=== PATIENT | male | born 1980 | race Caucasian/White ===

== ENCOUNTER 2016-08-06 22:10 | Emergency (ER) | payer OTHER ==
[2016-08-06 22:31] VITALS: RESP 18
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
[2016-08-07] MEDS ORDERED: KETOROLAC 60 MG/2 ML VIAL IM STA (00:29)
[2016-08-07 01:02] VITALS: BP 135/78; PULSE 78; TEMP 97.9
== END 2016-08-07 01:02 | disposition home or self-care (01) ==
LOC: EC 22:10
DX: S80.02XA Contusion of left knee, initial encounter (principal); S50.312A Abrasion of left elbow, initial encounter; F17.200 Nicotine dependence, unspecified, uncomplicated; Z88.5 Allergy status to narcotic agent; V19.9XXA Pedal cyclist (driver) (passenger) injured in unspecified traffic accident, initial encounter; Y92.410 Unspecified street and highway as the place of occurrence of the external cause
CPT/HCPCS: 96372 ×2; 99283 ×2; 73080; 73562; J1885

== ENCOUNTER 2017-03-06 22:39 | Emergency (ER) | payer OTHER ==
[2017-03-06 22:48] VITALS: BP 121/81; PULSE 82; RESP 16; TEMP 98.9
[2017-03-06] MEDS ORDERED: PROPARACAINE 0.5% OPHTH DROPS 15 ML BTL LEFT EYE STA (23:36)
[2017-03-06] MEDS ORDERED: TOBRAMYCIN 0.3% OPHTH OINT 3.5 GM TUBE LEFT EYE STA (23:50)
[2017-03-06] MEDS ORDERED: DIPH,PERTUS(ACELL)TETVAC-LF 0.5 ML VIAL IM ONE (23:50)
--- NOTE | 2017-03-06 23:50 | ED ---
ENT HPI - General Chief complaint: Eye Problems Stated complaint: eye pain Time Seen by Provider: 03/06/17 23:35 Source: patient Mode of arrival: ambulatory Limitations: no limitations - History of Present Illness Initial comments: 36-year-old male patient presents to the emergency department today for evaluation of left eye pain and irritation. Patient states that symptoms started approximately 2 days ago. He states that he thinks he may have gotten something in it at work. He describes the pain as a scratching feeling. States that the eye is also very itchy. He is reporting clear drainage from the eye. He states that his vision is somewhat blurred but he can still see. He denies any headaches, fever, chills, cough, congestion, or nasal drainage. He denies any sick contacts. Patient denies any recent rash, shortness breath, chest pain, abdominal pain, nausea, vomiting, diarrhea, constipation, back pain , numbness, tingling, dizziness, weakness, hematuria, dysuria, urinary urgency, urinary frequency, headache, visual changes, or any other complaints. - Related Data Home Medications Medication Instructions Recorded Confirmed No Known Home Medications [No 03/06/17 03/06/17 Known Home Medications] Allergies Allergy/AdvReac Type Severity Reaction Status Date / Time tramadol Allergy Nausea & Verified 03/06/17 23:26 Vomiting Review of Systems ROS Statement: Those systems with pertinent positive or pertinent negative responses have been documented in the HPI. ROS Other: All systems not noted in ROS Statement are negative. Past Medical History Additional Past Medical History / Comment(s): pneumothorax, TRACH AT 1 YEAR OLD History of Any Multi-Drug Resistant Organisms: None Reported Past Surgical History: Orthopedic Surgery Additional Past Surgical History / Comment(s): nasal surgery Past Psychological History: No Psychological Hx Reported, Anxiety, Bipolar, Depression, Schizophrenia Smoking Status: Current every day smoker Past Alcohol Use History: None Reported Past Drug Use History: None Reported General Exam Limitations: no limitations General appearance: alert, in no apparent distress, other (This is a well- developed, well-nourished adult male patient in no acute distress. Vital signs upon presentation were temperature 98.9F, pulse 82, respirations 16, blood pressure 121/81, pulse ox 99% on room air.) Eye exam: Present: PERRL, EOMI, conjunctival injection (Left conjunctival injection), other (Clear drainage from the left eye. Centeno lamp examination with fluorescein stain was performed and did show conjunctival abrasions at both 3:00 and 9:00. There was no evidence of foreign body, no abnormalities with lid eversion.). Absent: scleral icterus, nystagmus, periorbital swelling ENT exam: Present: normal exam, normal oropharynx, mucous membranes moist Respiratory exam: Present: normal lung sounds bilaterally. Absent: respiratory distress, wheezes, rales, rhonchi, stridor Cardiovascular Exam: Present: regular rate, normal rhythm, normal heart sounds. Absent: systolic murmur, diastolic murmur, rubs, gallop, clicks Neurological exam: Present: alert, oriented X3, CN II-XII intact Psychiatric exam: Present: normal affect, normal mood Skin exam: Present: warm, dry, intact, normal color. Absent: rash Course Vital Signs 03/06/17 22:45 Temperature 98.9 F Pulse Rate 82 Respiratory 16 Rate Blood Pressure 121/81 O2 Sat by Pulse 99 Oximetry Medical Decision Making - Medical Decision Making 36-year-old male patient presented to the emergency department today for evaluation of left eye pain and irritation. Physical examination did reveal left conjunctival injection. Pupils were equal and reactive. I did perform lid eversion with no evidence of foreign body or abnormality. I performed a Centeno lamp examination with fluoroscein stain which did reveal 2 large conjunctival abrasions at both 3:00 and 9:00. Patient did have complete pain relief with instillation of proparacaine. Tetanus vaccine was updated today. Patient will be discharged home with tobramycin ointment, he is instructed to apply this to the lower eyelid 4 times daily. He is instructed to take ibuprofen for pain relief. He is instructed to follow-up with ophthalmology if his symptoms don't improve over the next 2 days. He is instructed to return here immediately for any new, worsening, or concerning symptoms. He verbalizes understanding and agrees with this plan. Disposition Clinical Impression: Conjunctival abrasion Disposition: HOME SELF-CARE Condition: Good Instructions: Tobramycin (Into the eye), Corneal Abrasion (ED) Additional Instructions: Apply tobramycin ointment 1 cm ribbon to the lower eyelid 4 times daily. Take ibuprofen for pain control. If symptoms aren't improved in 2 days follow-up with [facility] for further evaluation. Return here immediately for any new, worsening, or concerning symptoms. Referrals: Blake Oropeza MD [Primary Care Provider] - 1-2 days Time of Disposition: 23:50
== END 2017-03-07 00:24 | disposition home or self-care (01) ==
LOC: EC 22:39
DX: S05.02XA Injury of conjunctiva and corneal abrasion without foreign body, left eye, initial encounter (principal); F17.200 Nicotine dependence, unspecified, uncomplicated; Z23 Encounter for immunization; Z88.6 Allergy status to analgesic agent
CPT/HCPCS: 90471; 90715; 99283

== ENCOUNTER 2017-07-10 12:50 | Emergency (ER) | payer OTHER ==
[2017-07-10 13:00] VITALS: BP 113/67; PULSE 85; RESP 18; TEMP 98.1
--- NOTE | 2017-07-10 13:20 | XR ---
EXAMINATION TYPE: XR hand complete LT DATE OF EXAM: 07/10/2017 CLINICAL HISTORY: Cutting injury with pain. TECHNIQUE: Frontal, lateral and oblique images of the left hand are obtained. COMPARISON: None. FINDINGS: There is no acute fracture/dislocation evident in the left hand. The joint spaces in the l eft hand appear within normal limits. The overlying soft tissue appears unremarkable without suspici ous radiodense foreign body seen. IMPRESSION: There is no acute fracture or dislocation in the left hand.
--- NOTE | 2017-07-10 14:05 | ED ---
General Adult HPI - General Chief complaint: Wound/Laceration Stated complaint: [facility]-Finger Lac & Drug/Alcohol test Time Seen by Provider: 07/10/17 13:40 Source: patient, RN notes reviewed Mode of arrival: ambulatory Limitations: no limitations - History of Present Illness Initial comments: 37-year-old male presents to the emergency department with a chief complaint of left hand laceration. He cut it on a edge grinder machine at work today. His tetanus was last year or so. He states it hurts at the [place]. He denies any other injury from the incident. He denies any other symptoms at this time. He states it is difficult to straighten that index finger.Patient denies any recent fever, chills, shortness of breath, chest pain, back pain, abdominal pain, nausea vomiting, numbness or tingling, dysuria or hematuria, constipation or diarrhea, headaches or visual changes, or any other current symptoms. - Related Data Previous Rx's Medication Instructions Recorded Cephalexin [Keflex] 500 mg PO Q6HR #40 cap 07/10/17 Allergies Allergy/AdvReac Type Severity Reaction Status Date / Time tramadol Allergy Nausea & Verified 07/10/17 12:59 Vomiting Review of Systems ROS Statement: Those systems with pertinent positive or pertinent negative responses have been documented in the HPI. ROS Other: All systems not noted in ROS Statement are negative. Past Medical History Additional Past Medical History / Comment(s): pneumothorax, TRACH AT 1 YEAR OLD History of Any Multi-Drug Resistant Organisms: None Reported Past Surgical History: Orthopedic Surgery Additional Past Surgical History / Comment(s): nasal surgery Past Psychological History: No Psychological Hx Reported, Anxiety, Bipolar, Depression, Schizophrenia Smoking Status: Current every day smoker Past Alcohol Use History: None Reported Past Drug Use History: None Reported General Exam - General Exam Comments Initial Comments: General: The patient is awake and alert, in no distress, and does not appear acutely ill. Neck: The neck is supple, there is no tenderness. Cardiovascular: There is a regular rate and rhythm. No murmur, rub or gallop is appreciated. Respiratory: Lungs are clear to auscultation, respirations are non-labored, breath sounds are equal. No wheezes, stridor, rales, or rhonchi. Musculoskeletal: Sensation intact with 2+ pulses throughout the left upper x- ray. Full range of motion of left hand despite patient has limited extension at the MCP joint of the left second finger. With a small 1 cm laceration over the knuckle with exposure of tendon on movement. Less than 2 capillary refill throughout. Full range motion of left wrist. Neurological: CN II-XII intact, There are no obvious motor or sensory deficits. Coordination appears grossly intact. Speech is normal. Skin: Skin is warm and dry and no rashes or lesions are noted. Psychiatric: Normal mood and affect. Limitations: no limitations Course Vital Signs 07/10/17 12:56 Temperature 98.1 F Pulse Rate 85 Respiratory 18 Rate Blood Pressure 113/67 O2 Sat by Pulse 99 Oximetry Procedures - Procedures Initial comment: The skin was anesthetized with 1% lidocaine. The laceration was then cleansed with Betadine and irrigated with normal saline. The wound was inspected, and there there does appear to be partial tendon laceration. No foreign body was noted in the wound. A total of 1 skin sutures were placed utilizing 5-0 nylon to a 1 cm laceration over the left second knuckle on the left hand. - Orthopedic Splinting/Casting Injury #1 Side: left Upper Extremity Injury Location: finger Upper Extremity Immobilizer: synthetic pre-padded splint Medical Decision Making - Medical Decision Making 37-year-old male presents for left finger laceration. This time there does appear to be concern for tendon involvement. A suture was placed we will start patient antibiotics we did discuss follow-up with hand we did place him in a splint. The patient stated that he understood and he is agreement this plan. All questions have been answered. He will be discharged home. Disposition Clinical Impression: Laceration of left index finger with tendon involvement Disposition: HOME SELF-CARE Condition: Stable Instructions: Laceration (ED), Care For Your Stitches (ED) Additional Instructions: Please use medication as discussed. Please follow up with family doctor if symptoms have not improved over the next two days. Please return to the emergency room if your symptoms increase or worsen or for any other concerns. Please return to the emergency room in 8-10 days to have sutures removed. Please leave wound covered for the first 24-48 hours and then leave open to air after that time. Please use clean soap and water to clean the suture area to prevent scabbing over the top of your sutures. Please watch for any signs of infection which may include but not limited to increased pain, swelling, redness , fever or chills. Please return to the emergency room if any signs of infection do occur. Please return to the emergency room for any other concerns or complications. Prescriptions: Cephalexin [Keflex] 500 mg PO Q6HR #40 cap Referrals: Blake Oropeza MD [Primary Care Provider] - 1-2 days Wesly Chaves DO [Doctor of Osteopathic Medicine] - 1-2 days Time of Disposition: 14:05
[2017-07-10] MEDS ORDERED: IBUPROFEN 600 MG STARTER PACK 4 TAB BTL PO STA (14:33)
== END 2017-07-10 14:55 | disposition home or self-care (01) ==
LOC: EC 12:50
DX: S61.211A Laceration without foreign body of left index finger without damage to nail, initial encounter (principal); F17.200 Nicotine dependence, unspecified, uncomplicated; Z88.5 Allergy status to narcotic agent; W31.89XA Contact with other specified machinery, initial encounter; Y99.0 Civilian activity done for income or pay; Y92.69 Other specified industrial and construction area as the place of occurrence of the external cause
CPT/HCPCS: 12001; 99283

== ENCOUNTER 2017-07-18 08:22 | Day surgery (SDC) | payer OTHER ==
--- NOTE | 2017-07-17 09:22 | HP ---
HISTORY AND PHYSICAL CHIEF COMPLAINT: Left index finger pain. 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 He cut his left index finger along the dorsum with an angle grinder carbon plant. Initially he was seen in the emergency room and had his wound irrigated and closed. He was given a tetanus update. He was started on oral Keflex. He denies previous injury. PAST MEDICAL HISTORY: Significant for COPD and depression. PAST SURGICAL HISTORY: Significant for chest tube placement for pneumothorax. CURRENT MEDICATIONS: Keflex. ALLERGIES: He notes allergies to TRAMADOL. FAMILY HISTORY: Significant for heart disease and cancer. SOCIAL HISTORY: Significant for a long history of tobacco use. REVIEW OF SYSTEMS: Sixteen-point review of systems otherwise reviewed and is noncontributory. PHYSICAL EXAMINATION: On examination, the patient is approximately 5 feet 8 inches, 150 pounds of mesomorphic habitus. HEENT exam is nonfocal. Neck is supple. He is nontender about the left shoulder, elbow and wrist. On examination of his left hand, he has a 1 cm laceration over the dorsal ulnar aspect of the index finger at the level of the MCP joint. He has limited extension strength. He has no significant extensor lag. Light touch is grossly intact. Capillary refill is less than 2 seconds distally. No rotational abnormalities noted. X-rays of the left hand obtained in the office show no definite osseous abnormality or radiopaque foreign body. IMPRESSION: Left index finger extensor tendon partial laceration. RECOMMENDATIONS: I talked to the patient at length regarding his treatment options. At this point, he opts to proceed with surgery. We will plan to proceed with wound exploration of his left hand with probable extensor tendon repair of the index finger. We will likely perform that as an outpatient procedure. Risks and benefits were discussed at length in layman's terms. MMODL / IJN: [id number] /
[2017-07-17 13:56] VITALS: BMI 24.2
[~2017-07-18 08:22] MED LIST: DEXAMETHASONE SOD PHOSPHATE 10 MG/ML 1 ML VIAL IV ONE; LACTATED RINGERS 1,000 ML IV SCH; MIDAZOLAM 2 MG/2 ML VIAL IV PRN; ONDANSETRON 4 MG/2 ML VIAL IVP ONE; SCOPOLAMINE 1.5MG/72HR PATCH TRANSDERM ONE; ceFAZolin 1,000 MG in DEXTROSE/WATER 1 50ML.BAG IV ONE; fentaNYL (PF) 50 MCG/ML 2 ML AMP IV PRN
[2017-07-18] MEDS ORDERED: LIDOCAINE 1% 20 ML VIAL (10MG/ML) FOR IV START INTRADERMA ONE (09:08)
[2017-07-18] MEDS ORDERED: LIDOCAINE 1% INJ 10MG/ML (20 ML MDV) ONE (10:54)
[2017-07-18] MEDS ORDERED: PROPOFOL 10 MG/ML 20 ML VIAL IV ONE (10:54)
[2017-07-18] MEDS ORDERED: BUPIVACAINE (PF) 0.25% 30 ML VIAL SQ ONE (10:54)
[2017-07-18] MEDS ORDERED: MIDAZOLAM 2 MG/2 ML VIAL ONE (10:54)
[2017-07-18] MEDS ORDERED: fentaNYL (PF) 50 MCG/ML 2 ML AMP ONE (10:54)
[2017-07-18] MEDS ORDERED: LACTATED RINGERS 1,000 ML IV ONE (11:08)
--- NOTE | 2017-07-18 11:48 | P.OP ---
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 He discussion of the risks and benefits of operative intervention was made with patient. He opted proceed with surgery. Operative risks to include infection, neurovascular injury, tendon rerupture, postoperative stiffness, and possible need for subsequent procedures was discussed. Informed consent was obtained. Operative Findings: As below Description of Procedure: The patient was brought to the operating room, and after induction of general anesthesia the left upper extremity was prepped and draped in normal fashion. The tourniquet was inflated to 250 mm marker. The previous 1 cm dorsal laceration over the left index finger proximal to the MCP joint was then explored. This wound was copiously irrigated. The extensor tendon was inspected and the dorsal ulnar 50% was lacerated. A 2-0 Ti-Cron suture was placed as a core suture. The tendon edges were then reapproximated. The edges were oversewn with simple 2-0 Tycron interrupted sutures. The wound was copiously irrigated. The skin was reapproximated with simple 4-0 nylon suture. A sterile dressing was applied in addition to a volar splint with the hand in functional position. The tourniquet was deflated less than 20 minutes total tourniquet time. The patient was awoken from general anesthesia and transferred to recovery room in good condition. Blood loss was estimated 2 mL. No complications were incurred. Sponge and needle counts were correct at the end of the case.
[2017-07-18 11:59] VITALS: TEMP 97.7
[2017-07-18] MEDS ORDERED: Acetaminophen-Codeine 300-30mg TAB PO ONE (12:50)
[2017-07-18 13:29] VITALS: BP 102/65; PULSE 84; RESP 16
== END 2017-07-18 13:41 | disposition home or self-care (01) ==
LOC: OR 08:22
PROVIDERS: ATTEND Orthopaedic Surgery
DX: S66.321A Laceration of extensor muscle, fascia and tendon of left index finger at wrist and hand level, initial encounter (principal); W29.8XXA Contact with other powered hand tools and household machinery, initial encounter; Y99.0 Civilian activity done for income or pay; J44.9 Chronic obstructive pulmonary disease, unspecified; F32.9 Major depressive disorder, single episode, unspecified; Z88.5 Allergy status to narcotic agent; Z82.49 Family history of ischemic heart disease and other diseases of the circulatory system; Z80.9 Family history of malignant neoplasm, unspecified; Z72.0 Tobacco use
CPT/HCPCS: 26418; J2250; J1100; J2405; J2001; J3010; J0690; J2704

== ENCOUNTER 2018-04-28 19:00 | Emergency (ER) | payer OTHER ==
[2018-04-28 19:14] VITALS: BP 142/83; PULSE 77; RESP 18; TEMP 98.4
--- NOTE | 2018-04-28 20:34 | ED ---
General Adult HPI - General Chief complaint: Skin/Abscess/Foreign Body Stated complaint: abscess on left ear Source: patient, RN notes reviewed, old records reviewed Mode of arrival: ambulatory Limitations: no limitations - History of Present Illness Initial comments: 37-year-old male patient passed no history of recurrent abscess proximal to earlobes bilaterally presents to ED with small abscess distal to R ear lobe. Patient states this is ongoing for approximately 3 days. Patient states that is tender to palpation is been able to express a small amount of purulent drainage. Patient has any other symptoms. Patient denies nausea vomiting diarrhea, fever chills, chest pain, shortness breath, abdominal pain. Systemic: Pt denies fatigue, myalgia, fever/chills. Pt denies weakness, night sweats, weight loss. Neuro: Pt denies headache, visual disturbances, syncope or pre-syncope. HEENT: Pt denies ocular discharge or irritation, otalgia, rhinorrhea, pharyngitis or notable lymphadenopathy. Cardiopulmonary: Pt denies chest pain, SOB, heart palpitations, dyspnea on exertion. Abdominal/GI: Pt denies abdominal pain, n/v/d. : Pt denies dysuria, burning w/ urination, frequency/urgency. Denies new onset urinary or bowel incontinence. MSK: Pt denies myalgia, loss of strength or function in extremities. Neuro: Pt denies new onset weakness, paresthesias. - Related Data Previous Rx's Medication Instructions Recorded Cephalexin [Keflex] 500 mg PO Q6HR #40 cap 07/10/17 Acetaminophen-Codeine 300-30mg 1 tab PO Q8H PRN #20 tablet 07/18/17 [Tylenol #3] Sulfamethox-Tmp 800-160Mg [Bactrim 1 tab PO Q12HR #20 tab 04/28/18 DS 800-160 mg] Allergies Allergy/AdvReac Type Severity Reaction Status Date / Time tramadol Allergy Nausea & Verified 04/28/18 19:14 Vomiting Review of Systems ROS Statement: Those systems with pertinent positive or pertinent negative responses have been documented in the HPI. ROS Other: All systems not noted in ROS Statement are negative. Past Medical History Additional Past Medical History / Comment(s): Pneumothorax from an accident at work and had to have a trach. Short term and approx. 1 yr. ago. History of Any Multi-Drug Resistant Organisms: None Reported Past Surgical History: Orthopedic Surgery Additional Past Surgical History / Comment(s): nasal surgery Past Anesthesia/Blood Transfusion Reactions: No Reported Reaction Past Psychological History: Anxiety, Bipolar, Depression Smoking Status: Current every day smoker Past Alcohol Use History: None Reported Past Drug Use History: None Reported - Past Family History Mother Additional Family Medical History / Comment(s): Unable to obtain a family history from his sisiter. General Exam - General Exam Comments Initial Comments: Constitutional: NAD, AOX3, Pt has pleasant affect. HEENT: NC/AT, trachea midline, neck supple, no lymphadenopathy. Posterior pharynx non erythematous, without exudates. External ears appear normal, without discharge. Mucous membranes moist. Eyes PERRLA, EOM intact. There is no scleral icterus. No pallor noted. Cardiopulmonary: RRR, no murmurs, rubs or gallops, no JVD noted. Lungs CTAB in anterior and posterior siddiqui. No peripheral edema. Abdominal exam: Abdomen soft and non-distended. Abdomen non-tender to palpation in all 4 quadrants. Bowel sounds active in LLQ. No hepatosplenomegaly. No ecchymosis Neuro: CN II-XII grossly intact. No nuchal rigidity. MSK: No posterior calf tenderness bilaterally, homans sign negative bilaterally. Posterior tibialis and radial pulse +2 bilaterally. Sensation intact in upper and lower extremities. Full active ROM in upper and lower extremities, 5/5 strength. Derm: approximately 1x1 cm abscess noted proximal to R ear lobe. Incision and drainage performed with 18-gauge needle, small amount of purulent drainage expressed, aerobic culture taken. Limitations: no limitations Course Vital Signs 04/28/18 19:12 Temperature 98.4 F Pulse Rate 77 Respiratory 18 Rate Blood Pressure 142/83 O2 Sat by Pulse 100 Oximetry Procedures - Incision & Drainage Consent Obtained: verbal consent Time Out Performed?: Yes Site: face I&D Cleaning Method: Betadine Sterile Field Used?: No Needle Aspiration Performed?: Yes I&D Drainage Obtained: Pus Culture Obtained?: Yes Patient Tolerated Procedure: well, no complications Medical Decision Making - Medical Decision Making 37-year-old male patient passed no history of recurrent abscess proximal to earlobes bilaterally presents to ED with small abscess distal to R ear lobe. Patient states this is ongoing for approximately 3 days. Patient states that is tender to palpation is been able to express a small amount of purulent drainage. Patient denies any other symptoms. Patient denies nausea vomiting diarrhea, fever chills, chest pain, shortness breath, abdominal pain. Patient vital signs stable, afebrile. Physical exam displayed: Approximately 1x1 cm abscess noted proximal to R ear lobe. Incision and drainage performed with 18- gauge needle, small amount of purulent drainage expressed, aerobic culture taken. Patient to discharged with by mouth Bactrim to take for 10 days. Patient to follow with primary care physician tomorrow. Patient to return to ED if new signs or symptoms develop, if condition worsens in any way. Case discussed in depth with Dr. Sheffield. Disposition Clinical Impression: Abscess Disposition: HOME SELF-CARE Condition: Good Instructions: Abscess Incision and Drainage (ED), Abscess (ED) Additional Instructions: Patient to adhere to previously discussed treatment plan and will take medication(s) as directed. Patient to follow up with PCP in 1-2 days. Patient to return to ED if symptoms do not improve. Prescriptions: Sulfamethox-Tmp 800-160Mg [Bactrim DS 800-160 mg] 1 tab PO Q12HR #20 tab Is patient prescribed a controlled substance at d/c from ED?: No Referrals: None,Stated [Primary Care Provider] - 1-2 days Time of Disposition: 20:34
== END 2018-04-28 20:43 | disposition home or self-care (01) ==
LOC: EC 19:00 → SUPCPDRO 19:00 → EC 20:43
DX: H60.02 Abscess of left external ear (principal); F17.200 Nicotine dependence, unspecified, uncomplicated; Z88.5 Allergy status to narcotic agent
CPT/HCPCS: 69000; 87070; 87205; 99283

== ENCOUNTER 2018-11-28 20:56 | Emergency (ER) | payer OTHER ==
[2018-11-28] MEDS ORDERED: LIDOCAINE 1% INJ 10MG/ML (20 ML MDV) SQ ONE (21:53)
--- NOTE | 2018-11-28 21:53 | ED ---
Wound/Laceration HPI - General Chief Complaint: Wound/Laceration Stated Complaint: Leg Lac Time Seen by Provider: 11/28/18 21:26 Source: patient Mode of arrival: ambulatory Limitations: no limitations - History of Present Illness Initial Comments: Patient is a 38-year-old male presenting to emergency Department with complaints of a laceration to his left calf x today. Patient states he was trying to grab a football that was thrown by his kids when he hopped over a chain-link fence and cut the back of his left calf. Patient's tetanus vaccine is within 2 years. Minimal bleeding at this time. Patient is able to ambulate. Patient has no other complaints at this time. - Related Data Home Medications Medication Instructions Recorded Confirmed No Known Home Medications 11/28/18 11/28/18 Allergies Allergy/AdvReac Type Severity Reaction Status Date / Time tramadol Allergy Nausea & Verified 04/28/18 19:14 Vomiting Review of Systems ROS Statement: Those systems with pertinent positive or pertinent negative responses have been documented in the HPI. ROS Other: All systems not noted in ROS Statement are negative. Past Medical History Additional Past Medical History / Comment(s): Pneumothorax from an accident at work and had to have a trach. Short term and approx. 1 yr. ago. History of Any Multi-Drug Resistant Organisms: None Reported Past Surgical History: Orthopedic Surgery Additional Past Surgical History / Comment(s): nasal surgery Past Anesthesia/Blood Transfusion Reactions: No Reported Reaction Past Psychological History: Anxiety, Bipolar, Depression Smoking Status: Current every day smoker Past Alcohol Use History: None Reported Past Drug Use History: None Reported - Past Family History Mother Additional Family Medical History / Comment(s): Unable to obtain a family history from his sisiter. General Exam - General Exam Comments Initial Comments: GENERAL: Well-appearing, well-nourished and in no acute distress. HEAD: Atraumatic, normocephalic. EYES: Pupils equal round and reactive to light, extraocular movements intact, sclera anicteric, conjunctiva are normal. ENT: TMs normal, nares patent, oropharynx clear without exudates. Moist mucous membranes. NECK: Normal range of motion, supple without lymphadenopathy or JVD. LUNGS: Breath sounds clear to auscultation bilaterally and equal. No wheezes rales or rhonchi. HEART: Regular rate and rhythm without murmurs, rubs or gallops. ABDOMEN: Soft, nontender, normoactive bowel sounds. No guarding, no rebound. No masses appreciated. : Deferred EXTREMITIES: Normal range of motion, no pitting or edema. No clubbing or cyanosis. NEUROLOGICAL: Cranial nerves II through XII grossly intact. Normal speech, normal gait. PSYCH: Normal mood, normal affect. SKIN: Warm, Dry, normal turgor, no rashes. Patient has a 3 cm laceration to the posterior aspect of his left lower leg, just distal to the knee joint line. Minimal bleeding at this time. Limitations: no limitations Course Vital Signs 11/28/18 11/28/18 21:02 23:05 Temperature 97.8 F 97.7 F Pulse Rate 91 70 Respiratory 20 19 Rate Blood Pressure 124/84 123/75 O2 Sat by Pulse 100 98 Oximetry Procedures - Laceration Laceration #1 Consent Obtained: verbal consent Indication: laceration Site: lower extremity (Left posterior lower leg, proximal calf) Size (cm): 3 Description: linear Depth: simple, single layer Anesthetic Used: lidocaine 1% Anesthesia Technique: local infiltration Amount (mls): 3 Pre-repair: irrigated extensively Type of Sutures: nylon Size of Sutures: 4-0 Number of Sutures: 5 Technique: simple, interrupted Patient Tolerated Procedure: well Medical Decision Making - Medical Decision Making Patient is a 38-year-old male presenting with a laceration to the posterior aspect of the left lower leg, just distal to the right joint line. Patient cut his leg jumping over a chain-link fence. Tetanus vaccine is up-to-date. On exam patient has a 3 cm laceration. Wound was cleaned, closed with 5, 40 sutures. Patient tolerated procedure well. Patient is stable for discharge. Sutures will be removed in 10-12 days. Return parameters were discussed with the patient and he verbalized understanding. Case discussed with Dr. Hess. Disposition Clinical Impression: Laceration of left lower extremity Disposition: HOME SELF-CARE Condition: Stable Instructions (If sedation given, give patient instructions): Care For Your Stitches (ED), Laceration (ED) Additional Instructions: Please return to the Emergency Department if symptoms worsen or any other concerns. Sutures need to be removed in 10-12 days. Is patient prescribed a controlled substance at d/c from ED?: No Referrals: None,Stated [Primary Care Provider] - 1-2 days
[2018-11-28 23:06] VITALS: BP 123/75; PULSE 70; RESP 19; TEMP 97.7
== END 2018-11-28 23:06 | disposition home or self-care (01) ==
LOC: EC 20:56
DX: S81.812A Laceration without foreign body, left lower leg, initial encounter (principal); W26.8XXA Contact with other sharp object(s), not elsewhere classified, initial encounter; Y93.61 Activity, american tackle football; F17.200 Nicotine dependence, unspecified, uncomplicated; Z88.5 Allergy status to narcotic agent
CPT/HCPCS: 99282; 12002; J2001

== ENCOUNTER 2020-06-12 13:22 | Emergency (ER) | payer BC, OTHER ==
[2020-06-12 13:54] VITALS: TEMP 97.8
[2020-06-12] MEDS ORDERED: ceFAZolin 1,000 MG VIAL (IM USE) IM STA (14:29)
--- NOTE | 2020-06-12 14:30 | ED ---
ENT HPI - General Chief complaint: ENT Stated complaint: abscess Time Seen by Provider: 06/12/20 14:07 Source: patient, police, RN notes reviewed Mode of arrival: ambulatory Limitations: no limitations - History of Present Illness Initial comments: Is a 39-year-old male that comes in complaining of left ear abscess is accompanied by title assistant.. He noted that he's had for about 5 days he squeezed it a little bit on its own in his cell got a few drops of stuff out of it. He noted that he then went to the snf nurse who told with a needle squeezed it some more amoxicillin. He noted that since then its gotten worse, all was normal size and the swelling and pain has increased and started going down his neck. He noted that he is in moderate discomfort and is painful to touch and palpation. He denied any tenderness to the palpation over the mastoid process, chest pain, shortness of breath headache nausea vomiting diarrhea constipation fever fatigue chills. - Related Data Previous Rx's Medication Instructions Recorded Cephalexin [Keflex] 500 mg PO Q6HR #40 cap 06/12/20 Sulfamethox-Tmp 800-160Mg [Bactrim 1 each PO Q12HR #20 tab 06/12/20 Ds] Allergies Allergy/AdvReac Type Severity Reaction Status Date / Time tramadol Allergy Nausea & Verified 06/12/20 13:54 Vomiting Review of Systems ROS Statement: Those systems with pertinent positive or pertinent negative responses have been documented in the HPI. ROS Other: All systems not noted in ROS Statement are negative. Past Medical History Additional Past Medical History / Comment(s): Pneumothorax from an accident at work and had to have a trach. Short term and approx. 1 yr. ago. History of Any Multi-Drug Resistant Organisms: None Reported Past Surgical History: Orthopedic Surgery Additional Past Surgical History / Comment(s): nasal surgery Past Anesthesia/Blood Transfusion Reactions: No Reported Reaction Past Psychological History: Anxiety, Bipolar, Depression Smoking Status: Current every day smoker Past Alcohol Use History: None Reported Past Drug Use History: None Reported - Past Family History Mother Additional Family Medical History / Comment(s): Unable to obtain a family history from his sisiter. General Exam Limitations: no limitations General appearance: alert, in no apparent distress Head exam: Present: atraumatic, normocephalic, normal inspection Eye exam: Present: normal appearance, PERRL, EOMI. Absent: scleral icterus, conjunctival injection, periorbital swelling ENT exam: Present: normal exam, mucous membranes moist. Absent: normal external ear exam (Abscess to the posterior aspect of the left earlobe that is fluctuant erythematous and tender to the palpation.) Neck exam: Present: normal inspection, tenderness (Just inferior to the left ear.). Absent: meningismus, lymphadenopathy Respiratory exam: Present: normal lung sounds bilaterally. Absent: respiratory distress, wheezes, rales, rhonchi, stridor Cardiovascular Exam: Present: regular rate, normal rhythm, normal heart sounds. Absent: systolic murmur, diastolic murmur, rubs, gallop, clicks Extremities exam: Present: normal inspection, full ROM, normal capillary refill. Absent: tenderness, pedal edema, joint swelling, calf tenderness Neurological exam: Present: alert, oriented X3, CN II-XII intact Psychiatric exam: Present: normal affect, normal mood Skin exam: Present: warm, dry, intact, normal color. Absent: rash Course Vital Signs 06/12/20 13:51 Temperature 97.8 F Pulse Rate 86 Respiratory 18 Rate Blood Pressure 130/82 O2 Sat by Pulse 98 Oximetry Procedures - Incision & Drainage Consent Obtained: verbal consent Site: other (Left ear) Size (cm): 0 I&D Cleaning Method: Alcohol Wipe Sterile Field Used?: Yes Needle Aspiration Performed?: Yes Irrigation Performed?: No I&D Drainage Obtained: Pus, Blood Culture Obtained?: No Patient Tolerated Procedure: well, no complications Medical Decision Making - Medical Decision Making We'll 1-year-old male with abscess to the posterior aspect of the left earlobe. 1 g of Ancef ordered for coverage while in hospital. Ear was prepped with alcohol wipe and lanced with an 18 age needle. Pus was expressed from here, patient handled the procedure well. Case discussed with Dr. Vasquez, was decided the patient could discharge back to facility. With antibiotics. Disposition Clinical Impression: Abscess of left earlobe Disposition: HOME SELF-CARE Condition: Stable Instructions (If sedation given, give patient instructions): Abscess (ED) Additional Instructions: Please return to the Emergency Department if symptoms worsen or any other concerns. Take antibiotics as prescribed until complete. Return if any increase in swelling, pain, fever, and abscess increased in size. Take [id number] pain medication as needed for pain and swelling. Is patient prescribed a controlled substance at d/c from ED?: No Referrals: Balke Oropeza MD [Primary Care Provider] - 1-2 days Time of Disposition: 14:43
[2020-06-12 14:52] VITALS: BP 117/80; PULSE 65; RESP 16
--- NOTE | 2020-06-13 09:36 | CDI ---
Dear Jose STEVENOSNC> Please do addendum for I & D procedure specific site ( external or middle or inner ear),required Thank you, Arline Camacho, [employer] If you have any questions, please contact [employer] at [phone] [facility]
--- NOTE | 2020-06-13 23:00 | ED ---
Disposition Clinical Impression: Abscess of left earlobe Disposition: HOME SELF-CARE Condition: Stable Instructions (If sedation given, give patient instructions): Abscess (ED) Additional Instructions: Please return to the Emergency Department if symptoms worsen or any other concerns. Take antibiotics as prescribed until complete. Return if any increase in swelling, pain, fever, and abscess increased in size. Take [id number] pain medication as needed for pain and swelling. Prescriptions: Sulfamethox-Tmp 800-160Mg [Bactrim Ds] 1 each PO Q12HR #20 tab Cephalexin [Keflex] 500 mg PO Q6HR #40 cap Is patient prescribed a controlled substance at d/c from ED?: No Referrals: Blake Oropeza MD [Primary Care Provider] - 1-2 days Procedures - Incision & Drainage Consent Obtained: verbal consent Site: other (Posterior left earlobe) Size (cm): 1 I&D Cleaning Method: Alcohol Wipe Sterile Field Used?: Yes Needle Aspiration Performed?: Yes Irrigation Performed?: No I&D Drainage Obtained: Pus, Blood Culture Obtained?: No Patient Tolerated Procedure: well, no complications
== END 2020-06-12 15:05 | disposition home or self-care (01) ==
LOC: EC 13:22
DX: H60.02 Abscess of left external ear (principal); H66.42 Suppurative otitis media, unspecified, left ear; F17.200 Nicotine dependence, unspecified, uncomplicated; Z88.5 Allergy status to narcotic agent
CPT/HCPCS: 10060; 96372; 99283

== ENCOUNTER 2023-02-19 00:44 | Emergency (ER) | payer BC, OTHER ==
[2023-02-19 01:41] VITALS: RESP 18; TEMP 98.4
[2023-02-19] MEDS ORDERED: KETOROLAC 15 MG/ML 1 ML VIAL IM STA (01:57)
--- NOTE | 2023-02-19 02:50 | ED ---
General Adult HPI - General Chief complaint: Recheck/Abnormal Lab/Rx Stated complaint: rib pain Time Seen by Provider: 02/19/23 01:39 EDT Source: patient Mode of arrival: ambulatory Limitations: no limitations - History of Present Illness Initial comments: 42-year-old male presenting to the ED with a chief complaint of rib pain. Patient states approximately a week ago was working on his roof when he slipped down his ladder. Patient did not fall directly off the ladder onto the ground. Patient states that instead he slid down the ladder with the left side of his chest hitting the rungs of the ladder. Reports that he initially thought nothing of it and has had some ongoing pain however states that tonight the same area was accidentally hit again and now notes pain has become worse. It is concerned about a rib fracture. Denies dyspnea. No chest pain. No other complaints. - Related Data Previous Rx's Medication Instructions Recorded Cephalexin [Keflex] 500 mg PO Q6HR #40 cap 06/12/20 Sulfamethox-Tmp 800-160Mg [Bactrim 1 each PO Q12HR #20 tab 06/12/20 Ds] Acetaminophen Tab [Tylenol] 650 mg PO Q6H #30 tab 02/19/23 Ibuprofen 800 mg PO Q8H #30 tab 02/19/23 Allergies Allergy/AdvReac Type Severity Reaction Status Date / Time tramadol Allergy Nausea & Verified 02/19/23 01:29 EDT Vomiting Review of Systems ROS Statement: Those systems with pertinent positive or pertinent negative responses have been documented in the HPI. ROS Other: All systems not noted in ROS Statement are negative. Past Medical History Additional Past Medical History / Comment(s): Pneumothorax from an accident at work and had to have a trach. Short term and approx. 1 yr. ago. History of Any Multi-Drug Resistant Organisms: None Reported Past Surgical History: Orthopedic Surgery Additional Past Surgical History / Comment(s): nasal surgery, trachea Past Anesthesia/Blood Transfusion Reactions: No Reported Reaction Past Psychological History: Anxiety, Bipolar, Depression Smoking Status: Current every day smoker Past Alcohol Use History: None Reported Past Drug Use History: None Reported - Past Family History Mother Additional Family Medical History / Comment(s): Unable to obtain a family history from his sisiter. General Exam Limitations: no limitations General appearance: alert, in no apparent distress ENT exam: Present: mucous membranes moist Neck exam: Present: normal inspection Respiratory exam: Present: normal lung sounds bilaterally, other (Chest wall tenderness to palpation.) Cardiovascular Exam: Present: regular rate, normal rhythm GI/Abdominal exam: Present: soft Neurological exam: Present: alert, oriented X3 Skin exam: Present: warm, dry Course Vital Signs 02/19/23 01:27 EDT Temperature 98.4 F Pulse Rate 82 Respiratory 18 Rate Blood Pressure 121/82 O2 Sat by Pulse 99 Oximetry Medical Decision Making - Medical Decision Making Was pt. sent in by a medical professional or institution (, PA, SCRAP KETTLE TENDER, urgent c are, hospital, or [facility]...) When possible be specific @ -No Did you speak to anyone other than the patient for history (EMS, parent, family, police, friend...)? What history was obtained from this source @ -No Did you review nursing and triage notes (agree or disagree)? Why? @ -I reviewed and agree with nursing and triage notes Were old charts reviewed (outside hosp., previous admission, EMS record, old EKG, old radiological studies, urgent care reports/EKG's, [facility] records)? Report findings @ -No old charts were reviewed Differential Diagnosis (chest pain, altered mental status, abdominal pain women, abdominal pain men, vaginal bleeding, weakness, fever, dyspnea, syncope, headache, dizziness, GI bleed, back pain, seizure, CVA, palpatations, mental health, musculoskeletal)? @ -Differential Musculoskeletal Muscular strain, contusion, ligament sprain, fracture, arthritis, septic arthritis, bursitis, cellulitis, muscle spasm, nerve compression, DVT, arterial occlusion, herpes zoster, electrolyte abnormality, tumor.... This is not meant to be in all inclusive list EKG interpreted by me (3pts min.). @ -None X-rays interpreted by me (1pt min.). @ -X-ray interpreted by me showing possible nondisplaced left fourth and fifth sixth rib fracture. However no pneumothorax. CT interpreted by me (1pt min.). @ -None done U/S interpreted by me (1pt. min.). @ -None done What testing was considered but not performed or refused? (CT, X-rays, U/S, labs)? Why? @ -None What meds were considered but not given or refused? Why? @ -None Did you discuss the management of the patient with other professionals (professionals i.e. , PA, SCRAP KETTLE TENDER, lab, RT, psych nurse, social welfare research worker, detail drafter, teacher, global safety officer, rn case manager hospice)? Give summary @ -No Was smoking cessation discussed for >3mins.? @ -No Was critical care preformed (if so, how long)? @ -No Were there social determinants of health that impacted care today? How? (Homelessness, low income, unemployed, alcoholism, drug addiction, transportation, low edu. Level, literacy, decrease access to med. care, senior living, rehab)? @ -No Was there de-escalation of care discussed even if they declined (Discuss DNR or withdrawal of care, Hospice)? DNR status @ -No What co-morbidities impacted this encounter? (DM, HTN, Smoking, COPD, CAD, Cancer, CVA, ARF, Chemo, Hep., AIDS, mental health diagnosis, sleep apnea, morbid obesity)? @ -None Was patient admitted / discharged? Hospital course, mention meds given and route, prescriptions, significant lab abnormalities, going to OR and other per tinent info. @ -Discharge A 42-year-old male presenting to the ED with left sided rib pain. Chest x-ray interpreted by me showing possible nondisplaced rib fractures on the left however there is no evidence of pneumothorax at this time patient is having no dyspnea. Patient reports that he does not want to wait until the official radiology report and instead would like to go home. Patient reports significant improvement of pain with Toradol. Patient discharged home with incentive spirometer in stable condition. Discussed return precautions with patient who verbalizes agreement. Undiagnosed new problem with uncertain prognosis? @ -No Drug Therapy requiring intensive monitoring for toxicity (Heparin, Nitro, Insu frandy, Cardizem)? @ -No Were any procedures done? @ -No Diagnosis/symptom? @ -Rib pain Acute, or Chronic, or Acute on Chronic? @ -Acute Uncomplicated (without systemic symptoms) or Complicated (systemic symptoms)? @ -Uncomplicated Side effects of treatment? @ -No Exacerbation, Progression, or Severe Exacerbation? @ -No Poses a threat to life or bodily function? How? (Chest pain, [place], [place], pneumonia, PE, COPD, DKA, ARF, appy, cholecystitis, CVA, Diverticulitis, Homicidal, Suicidal, threat to staff... and all critical care pts) @ -No Disposition Clinical Impression: Rib pain Disposition: HOME SELF-CARE Condition: Good Instructions (If sedation given, give patient instructions): Rib Fracture (ED), How to Use an Incentive Spirometer (ED) Additional Instructions: Please return to the Emergency Department if symptoms worsen or any other concerns. Prescriptions: Ibuprofen 800 mg PO Q8H #30 tab Acetaminophen Tab [Tylenol] 650 mg PO Q6H #30 tab Is patient prescribed a controlled substance at d/c from ED?: No Referrals: Blake Oropeza MD [Primary Care Provider] - 1-2 days Time of Disposition: 02:54
[2023-02-19] MEDS ORDERED: ACET/COD 300 MG/30 MG STARTER PACK 6 TAB BTL PO STA (02:55)
[2023-02-19 03:17] VITALS: BP 110/72; PULSE 76
--- NOTE | 2023-02-19 04:43 | XR ---
EXAM: XR Chest, 2 Views CLINICAL HISTORY: r/o l rib fx TECHNIQUE: Frontal and lateral views of the chest. COMPARISON: CT of the chest/abdomen dated 01/08/2016. FINDINGS: Lungs: Unremarkable. No consolidation. Pleural space: Unremarkable. No pneumothorax. Heart: Unremarkable. No cardiomegaly. Mediastinum: Unremarkable. Bones/joints: A displaced rib fractures is not seen. IMPRESSION: A displaced rib fractures not seen. Dedicated rib series versus CT of the chest recommended for further evaluation, if clinical suspicion remains.
== END 2023-02-19 03:07 | disposition home or self-care (01) ==
LOC: EC 00:44
DX: R07.81 Pleurodynia (principal); F17.200 Nicotine dependence, unspecified, uncomplicated; Z86.59 Personal history of other mental and behavioral disorders; Z88.5 Allergy status to narcotic agent
CPT/HCPCS: 71046; 99283; 96372; J1885

== ENCOUNTER 2023-12-17 01:18 | Emergency (ER) | payer OTHER ==
[2023-12-17 01:21] VITALS: TEMP 98
--- NOTE | 2023-12-17 02:19 | ED ---
Fall HPI - General Chief Complaint: Fall Stated Complaint: fall Time Seen by Provider: 12/17/23 01:55 Source: patient Mode of arrival: ambulatory - History of Present Illness Initial Comments: 43-year-old male presenting with chief complaint of right wrist injury. Patient states he was walking upstairs using the hand railing when he felt something pop in his wrist causing him to fall forward. He fell forward hitting his mouth on the stair. He had no loss of consciousness or blood thinners. He does have a very superficial laceration to the lip. He is also having some continued pain to the right wrist. No injury or trauma. No numbness or tingling. There is some swelling. No nausea, vomiting, dizziness, vision or hearing changes - Related Data Previous Rx's Medication Instructions Recorded Cephalexin [Keflex] 500 mg PO Q6HR #40 cap 06/12/20 Sulfamethox-Tmp 800-160Mg [Bactrim 1 each PO Q12HR #20 tab 06/12/20 Ds] Acetaminophen Tab [Tylenol] 650 mg PO Q6H #30 tab 02/19/23 Ibuprofen 800 mg PO Q8H #30 tab 02/19/23 Allergies Allergy/AdvReac Type Severity Reaction Status Date / Time tramadol Allergy Nausea & Verified 12/17/23 01:21 Vomiting Review of Systems ROS Statement: Those systems with pertinent positive or pertinent negative responses have been documented in the HPI. ROS Other: All systems not noted in ROS Statement are negative. Past Medical History Additional Past Medical History / Comment(s): Pneumothorax from an accident at work and had to have a trach. Short term and approx. 1 yr. ago. History of Any Multi-Drug Resistant Organisms: None Reported Past Surgical History: Orthopedic Surgery Additional Past Surgical History / Comment(s): nasal surgery, trachea Past Anesthesia/Blood Transfusion Reactions: No Reported Reaction Past Psychological History: Anxiety, Bipolar, Depression Smoking Status: Current every day smoker Past Alcohol Use History: None Reported Past Drug Use History: None Reported - Past Family History Mother Additional Family Medical History / Comment(s): Unable to obtain a family history from his sisiter. General Exam Limitations: no limitations General appearance: alert, in no apparent distress Head exam: Present: normocephalic, other (Small superficial laceration to the lower lip) Eye exam: Present: normal appearance, PERRL, EOMI Pupils: Present: normal accommodation Neck exam: Present: normal inspection, tenderness (Some muscular tenderness to the right side, no tenderness to the left side). Absent: meningismus Respiratory exam: Present: normal lung sounds bilaterally. Absent: respiratory distress, wheezes, rales, rhonchi, stridor Cardiovascular Exam: Present: regular rate, normal rhythm, normal heart sounds. Absent: systolic murmur, diastolic murmur, rubs, gallop, clicks Right Forearm Wrist exam: Present: tenderness, swelling. Absent: full ROM Neurological exam: Present: alert, oriented X3 Psychiatric exam: Present: normal affect, normal mood Skin exam: Present: warm, dry Course Vital Signs 12/17/23 12/17/23 01:18 03:16 Temperature 98 F Pulse Rate 108 H 100 Respiratory 16 18 Rate Blood Pressure 132/88 129/86 O2 Sat by Pulse 98 99 Oximetry Medical Decision Making - Medical Decision Making Was pt. sent in by a medical professional or institution (, PA, FURNITURE MOVER HELPER, urgent care, hospital, or prison...) When possible be specific @ -No Did you speak to anyone other than the patient for history (EMS, parent, family, police, friend...)? What history was obtained from this source @ -No Did you review nursing and triage notes (agree or disagree)? Why? @ -I reviewed and agree with nursing and triage notes Were old charts reviewed (outside hosp., previous admission, EMS record, old EKG, old radiological studies, urgent care reports/EKG's, prison records)? Report findings @ -No old charts were reviewed Differential Diagnosis (chest pain, altered mental status, abdominal pain women, abdominal pain men, vaginal bleeding, weakness, fever, dyspnea, syncope, headache, dizziness, GI bleed, back pain, seizure, CVA, palpatations, mental health, musculoskeletal)? @ -Differential Musculoskeletal Muscular strain, contusion, ligament sprain, fracture, arthritis, septic arthritis, bursitis, cellulitis, muscle spasm, nerve compression, DVT, arterial occlusion, herpes zoster, electrolyte abnormality, tumor.... This is not meant to be in all inclusive list EKG interpreted by me (3pts min.). @ -As above X-rays interpreted by me (1pt min.). @ -X-ray shows no acute osseous process CT interpreted by me (1pt min.). @ -None done U/S interpreted by me (1pt. min.). @ -None done What testing was considered but not performed or refused? (CT, X-rays, U/S, labs)? Why? @ -None What meds were considered but not given or refused? Why? @ -None Did you discuss the management of the patient with other professionals (professionals i.e. Dr., PA, FURNITURE MOVER HELPER, lab, RT, psych nurse, geriatric social work professor, bag machine operator, teacher, systems support officer, supportive employment case manager)? Give summary @ -No Was smoking cessation discussed for >3mins.? @ -No Was critical care preformed (if so, how long)? @ -No Were there social determinants of health that impacted care today? How? (Homelessness, low income, unemployed, alcoholism, drug addiction, transportation, low edu. Level, literacy, decrease access to med. care, residential, rehab)? @ -No Was there de-escalation of care discussed even if they declined (Discuss DNR or withdrawal of care, Hospice)? DNR status @ -No What co-morbidities impacted this encounter? (DM, HTN, Smoking, COPD, CAD, Cancer, CVA, ARF, Chemo, Hep., AIDS, mental health diagnosis, sleep apnea, morbid obesity)? @ -None Was patient admitted / discharged? Hospital course, mention meds given and route, prescriptions, significant lab abnormalities, going to OR and other pertinent info. @ -43-year-old male presenting for evaluation after falling while walking up the stairs. He is having right wrist pain and has a small superficial laceration to the lower lip. Laceration will not require closure. There is some swelling and tenderness to the wrist, no acute osseous process on x-ray. Patient does have multiple previous injuries to that arm. He is requesting discharge. Follow-up with PCP. Report back to ER with any new or worsening symptoms. Discussed return parameters and answered all questions. Patient conveyed verbal understanding and agreed to the plan. I discussed this case in detail with my attending Dr. Elias Undiagnosed new problem with uncertain prognosis? @ -No Drug Therapy requiring intensive monitoring for toxicity (Heparin, Nitro, Insulin, Cardizem)? @ -No Were any procedures done? @ -No Diagnosis/symptom? @ -Wrist sprain Acute, or Chronic, or Acute on Chronic? @ -Acute Uncomplicated (without systemic symptoms) or Complicated (systemic symptoms)? @ -Uncomplicated Side effects of treatment? @ -No Exacerbation, Progression, or Severe Exacerbation? @ -No Poses a threat to life or bodily function? How? (Chest pain, [place], [place], pneumonia, PE, COPD, DKA, ARF, appy, cholecystitis, CVA, Diverticulitis, Homicidal, Suicidal, threat to staff... and all critical care pts) @ -No Disposition Clinical Impression: Wrist sprain Disposition: HOME SELF-CARE Condition: Good Instructions (If sedation given, give patient instructions): Wrist Sprain (ED) Additional Instructions: Follow-up with PCP. Report back to ER with any new or worsening symptoms. Take Motrin and Tylenol as needed for pain control. Is patient prescribed a controlled substance at d/c from ED?: No Referrals: Blake Oropeza MD [Primary Care Provider] - 1-2 days Time of Disposition: 03:10
[2023-12-17] MEDS: ACETAMINOPHEN TAB 325 MG TAB PO STA (02:35)
--- NOTE | 2023-12-17 02:51 | XR ---
EXAMINATION TYPE: XR forearm RT DATE OF EXAM: 12/17/2023 CLINICAL HISTORY: Fall TECHNIQUE: Two views of the right forearm are obtained. COMPARISON: None. FINDINGS: There is no acute fracture or dislocation seen in the right radius or ulna. The right elb ow and wrist joints appear within normal limits. The overlying soft tissue appears within normal tim its. IMPRESSION: There is no acute fracture or dislocation seen in the right radius or ulna.
[2023-12-17 03:27] VITALS: BP 129/86; PULSE 100; RESP 18
== END 2023-12-17 03:27 | disposition home or self-care (01) ==
LOC: EC 01:18
DX: S63.501A Unspecified sprain of right wrist, initial encounter (principal); S01.511A Laceration without foreign body of lip, initial encounter; F17.200 Nicotine dependence, unspecified, uncomplicated; Z88.5 Allergy status to narcotic agent; W10.9XXA Fall (on) (from) unspecified stairs and steps, initial encounter; Y93.01 Activity, walking, marching and hiking
CPT/HCPCS: 99283

== ENCOUNTER 2024-01-15 01:15 | Inpatient (IN) | payer MEDICAID, OTHER ==
--- NOTE | 2024-01-15 01:28 | ED ---
Psych HPI - General Chief Complaint: Psychiatric Symptoms Stated Complaint: Mental Health Time Seen by Provider: 01/15/24 01:27 Source: patient, RN notes reviewed Mode of arrival: ambulatory - History of Present Illness Initial Comments: This is a 43-year-old male with a history of depression not currently on medications presenting the emergency department for chief complaint of mental health evaluation. He states that he has been having increasing thoughts of suicidal ideation over the past few weeks in the past few days have significantly worsened. He has continuous thoughts of wanting to kill himself. He does not currently have a plan he states that he will do what ever works. Patient does have previous suicidal attempt via hanging himself and overdose. Patient has been admitted to a psychiatric facility in the past. He denies current alcohol or drug use. He states that he has symptoms of auditory hallucinations where he feels like his dad is screaming at him and he is also hearing other people tell him to harm himself. Denies homicidal ideations. He is currently denying any acute complaints. - Related Data Previous Rx's Medication Instructions Recorded Cephalexin [Keflex] 500 mg PO Q6HR #40 cap 06/12/20 Sulfamethox-Tmp 800-160Mg [Bactrim 1 each PO Q12HR #20 tab 06/12/20 Ds] Acetaminophen Tab [Tylenol] 650 mg PO Q6H #30 tab 02/19/23 Ibuprofen 800 mg PO Q8H #30 tab 02/19/23 Allergies Allergy/AdvReac Type Severity Reaction Status Date / Time tramadol Allergy Nausea & Verified 01/15/24 01:17 Vomiting Review of Systems ROS Statement: Those systems with pertinent positive or pertinent negative responses have been documented in the HPI. ROS Other: All systems not noted in ROS Statement are negative. Past Medical History Additional Past Medical History / Comment(s): Pneumothorax from an accident at work and had to have a trach. Short term and approx. 1 yr. ago. History of Any Multi-Drug Resistant Organisms: None Reported Past Surgical History: Orthopedic Surgery Additional Past Surgical History / Comment(s): nasal surgery, trachea Past Anesthesia/Blood Transfusion Reactions: No Reported Reaction Past Psychological History: Anxiety, Bipolar, Depression Smoking Status: Current every day smoker Past Alcohol Use History: None Reported Past Drug Use History: None Reported - Past Family History Mother Additional Family Medical History / Comment(s): Unable to obtain a family history from his sisiter. General Exam Limitations: no limitations General appearance: alert, in no apparent distress Eye exam: Present: normal appearance, PERRL, EOMI. Absent: scleral icterus, conjunctival injection, periorbital swelling ENT exam: Present: normal exam, mucous membranes moist Neck exam: Present: normal inspection. Absent: tenderness, meningismus, lymphadenopathy Respiratory exam: Present: normal lung sounds bilaterally. Absent: respiratory distress, wheezes, rales, rhonchi, stridor Cardiovascular Exam: Present: regular rate, normal rhythm, normal heart sounds. Absent: systolic murmur, diastolic murmur, rubs, gallop, clicks GI/Abdominal exam: Present: soft, normal bowel sounds. Absent: distended, tenderness, guarding, rebound, rigid Extremities exam: Present: normal inspection, full ROM, normal capillary refill. Absent: tenderness, pedal edema, joint swelling, calf tenderness Back exam: Present: normal inspection Psychiatric exam: Present: depressed, flat affect, suicidal ideation Course Vital Signs 01/15/24 01:17 Temperature 98.0 F Pulse Rate 82 Respiratory 16 Rate Blood Pressure 134/94 O2 Sat by Pulse 100 Oximetry Medical Decision Making - Medical Decision Making Was pt. sent in by a medical professional or institution (, PA, RETAIL EVENT ASSISTANT, urgent care, hospital, or residential...) When possible be specific @ -No Did you speak to anyone other than the patient for history (EMS, parent, family, police, friend...)? What history was obtained from this source @ -No Did you review nursing and triage notes (agree or disagree)? Why? @ -I reviewed and agree with nursing and triage notes Were old charts reviewed (outside hosp., previous admission, EMS record, old EKG, old radiological studies, urgent care reports/EKG's, residential records)? Report findings @ -No old charts were reviewed Differential Diagnosis (chest pain, altered mental status, abdominal pain women, abdominal pain men, vaginal bleeding, weakness, fever, dyspnea, syncope, headache, dizziness, GI bleed, back pain, seizure, CVA, palpatations, mental health, musculoskeletal)? @ -Differential Mental Health Depression, anxiety, bipolar, psychosis, schizophrenia, borderline personality, situational depression, adjustment disorder, behavioral disorder, brain tumor, malingering, substance abuse, encephalopathy, medication reaction, dementia, hypothyroidism, degenerative neurologic disorder, lupus.... This is not meant to be all-inclusive list EKG interpreted by me (3pts min.). @ -None X-rays interpreted by me (1pt min.). @ -None done CT interpreted by me (1pt min.). @ -None done U/S interpreted by me (1pt. min.). @ -None done What testing was considered but not performed or refused? (CT, X-rays, U/S, labs)? Why? @ -None What meds were considered but not given or refused? Why? @ -None Did you discuss the management of the patient with other professionals (professionals i.e. , PA, RETAIL EVENT ASSISTANT, lab, RT, psych nurse, sexual assault social worker, assistant buyer, teacher, sustainability officer, telephonic case manager)? Give summary @ -I spoke with EPS nurse who recommends that patient be admitted inpatient for suicidal ideation. Was smoking cessation discussed for >3mins.? @ -No Was critical care preformed (if so, how long)? @ -No Were there social determinants of health that impacted care today? How? (Homelessness, low income, unemployed, alcoholism, drug addiction, transportation, low edu. Level, literacy, decrease access to med. care, fci, rehab)? @ -No Was there de-escalation of care discussed even if they declined (Discuss DNR or withdrawal of care, Hospice)? DNR status @ -No What co-morbidities impacted this encounter? (DM, HTN, Smoking, COPD, CAD, Cancer, CVA, ARF, Chemo, Hep., AIDS, mental health diagnosis, sleep apnea, morbid obesity)? @ -None Was patient admitted / discharged? Hospital course, mention meds given and route, prescriptions, significant lab abnormalities, going to OR and other pertinent info. @ -43-year-old male with mental health evaluation. Vitals are stable. I discussed with the patient he is noted to have a extremely flat affect with suicidal ideation. Comprehensive review of systems was completed with no acute findings. Physical examination no acute findings. Patient will be admitted to psychiatric unit for suicidal ideation. Undiagnosed new problem with uncertain prognosis? @ -No Drug Therapy requiring intensive monitoring for toxicity (Heparin, Nitro, Insulin, Cardizem)? @ -No Were any procedures done? @ -No Diagnosis/symptom? @ -Suicidal ideation, depression Acute, or Chronic, or Acute on Chronic? @ -Acute Uncomplicated (without systemic symptoms) or Complicated (systemic symptoms)? @ -complicated Side effects of treatment? @ -No Exacerbation, Progression, or Severe Exacerbation? @ -No Poses a threat to life or bodily function? How? (Chest pain, USA, NC, pneumonia, PE, COPD, DKA, ARF, appy, cholecystitis, CVA, Diverticulitis, Homicidal, Suicid al, threat to staff... and all critical care pts) @ -yes - Lab Data Lab Results 01/15/24 Range/Units 01:55 Urine Opiates Screen Not Detected (NotDetected) Ur Oxycodone Screen Not Detected (NotDetected) Urine Methadone Screen Not Detected (NotDetected) Ur Barbiturates Screen Not Detected (NotDetected) U Tricyclic Antidepress Not Detected (NotDetected) Ur Phencyclidine Scrn Not Detected (NotDetected) Ur Amphetamines Screen Detected H (NotDetected) U Methamphetamines Scrn Detected H (NotDetected) U Benzodiazepines Scrn Not Detected (NotDetected) Urine Cocaine Screen Not Detected (NotDetected) U Marijuana (THC) Screen Not Detected (NotDetected) Disposition Clinical Impression: Depression, Suicidal ideation Disposition: TRANSFER TO PSYCH HOSP/UNIT Condition: Serious Referrals: Blake Oropeza MD [Primary Care Provider] - 1-2 days
[2024-01-15 02:36] LABS: Amphetamine Screen,Urine Detected (NotDetected); Barbiturate Screen,Urine Not Detected (NotDetected); Benzodiazepines Screen,Urine Not Detected (NotDetected); Cocaine Screen,Urine Not Detected (NotDetected); Methadone Screen, Urine Not Detected (NotDetected); Opiate Screen,Urine Not Detected (NotDetected); Oxycodone Screen, Urine Not Detected (NotDetected); Phencyclidine Screen,Urine Not Detected (NotDetected); Tricyclic Antidepressant,Urine Not Detected (NotDetected); Urn Cannabinoid Scrn Not Detected (NotDetected)
[2024-01-15] MEDS ORDERED: HALOPERIDOL LACTATE 5 MG/ML 1 ML VIAL IM PRN (04:09)
[2024-01-15] MEDS ORDERED: haloperidoL 5 MG TAB PO PRN (04:09)
[2024-01-15] MEDS ORDERED: ACETAMINOPHEN TAB 325 MG TAB PO PRN (04:09)
[2024-01-15] MEDS ORDERED: MAG HYDROX/AL HYDROX/SIMETH 355 ML BOTTLE PO PRN (04:09)
[2024-01-15] MEDS ORDERED: MAGNESIUM HYDROXIDE 2,400 MG/30 ML CUP PO PRN (04:09)
[2024-01-15] MEDS ORDERED: LORazepam 1 MG TAB PO PRN (04:09)
[2024-01-15] MEDS ORDERED: traZODone HCL 50 MG TAB PO PRN (04:09)
[2024-01-15] MEDS ORDERED: LORazepam 2 MG/ML INJ IM PRN (04:09)
[2024-01-15 04:23] LABS: Appearance,Urine Clear (Clear); Bilirubin,Urine Negative (Negative); Blood,Urine Negative (Negative); Color,Urine Light Yellow; Glucose,Urine (UA) Negative (Negative); Ketones,Urine Negative (Negative); Leukocyte Esterase,Urine Negative (Negative); Nitrite,Urine Negative (Negative); PH, Urine 6.5 (5.0-8.0); Protein,Urine Negative (Negative); Specific Gravity,Urine 1.023 (1.001-1.035); Urobilinogen,Urine <2.0 mg/dL (<2.0)
[2024-01-15] MEDS: NICOTINE 14MG/24HR PATCH TRANSDERM SCH (10:08)
--- NOTE | 2024-01-15 11:19 | P.HP ---
Psychiatric H&P - . H&P Date: 01/15/24 History & Physical: Allergies Allergy/AdvReac Type Severity Reaction Status Date / Time tramadol Allergy Nausea & Verified 01/15/24 01:17 Vomiting Vital Signs Temp 98.1 F 01/15/24 04:47 Pulse 88 01/15/24 04:47 Resp 18 01/15/24 04:47 BP 131/81 01/15/24 04:47 Pulse Ox 99 01/15/24 04:47 FiO2 Intake & Output 01/14/24 01/15/24 01/15/24 18:59 06:59 18:59 Weight 63.701 kg Laboratory Last Values Urine Color Light Yellow 01/15/24 01:55 Urine Appearance Clear (Clear) 01/15/24 01:55 Urine pH 6.5 (5.0-8.0) 01/15/24 01:55 Ur Specific [place] 1.023 (1.001-1.035) 01/15/24 01:55 Urine Protein Negative (Negative) 01/15/24 01:55 Urine Glucose (UA) Negative (Negative) 01/15/24 01:55 Urine Ketones Negative (Negative) 01/15/24 01:55 Urine Blood Negative (Negative) 01/15/24 01:55 Urine Nitrite Negative (Negative) 01/15/24 01:55 Urine Bilirubin Negative (Negative) 01/15/24 01:55 Urine Urobilinogen <2.0 mg/dL (<2.0) 01/15/24 01:55 Ur Leukocyte Esterase Negative (Negative) 01/15/24 01:55 Urine Opiates Screen Not Detected (NotDetected) 01/15/24 01:55 Ur Oxycodone Screen Not Detected (NotDetected) 01/15/24 01:55 Urine Methadone Screen Not Detected (NotDetected) 01/15/24 01:55 Ur Barbiturates Screen Not Detected (NotDetected) 01/15/24 01:55 U Tricyclic Antidepress Not Detected (NotDetected) 01/15/24 01:55 Ur Phencyclidine Scrn Not Detected (NotDetected) 01/15/24 01:55 Ur Amphetamines Screen Detected (NotDetected) H 01/15/24 01:55 U Methamphetamines Scrn Detected (NotDetected) H 01/15/24 01:55 U Benzodiazepines Scrn Not Detected (NotDetected) 01/15/24 01:55 Urine Cocaine Screen Not Detected (NotDetected) 01/15/24 01:55 U Marijuana (THC) Screen Not Detected (NotDetected) 01/15/24 01:55 Influenza Type A (PCR) Not Detected (Not Detectd) 01/15/24 02:40 Influenza Type B (PCR) Not Detected (Not Detectd) 01/15/24 02:40 RSV (PCR) Not Detected (Not Detectd) 01/15/24 02:40 SARS-CoV-2 (PCR) Not Detected (Not Detectd) 01/15/24 02:40 01/15/24 09:15 IDENTIFYING DATA: Patient is a 43-year-old male, single, has 5 children and currently living with mother in [place] HPI: Patient presented to the hospital on 01/15/2024 due to worsening depression with suicidal ideations. Per ER note, patient states "past couple of weeks I have been thinking suicidal thoughts-just been getting worse worse. Really significant thoughts tonight. I have been depressed for a long time-when I am alone it is worse. "Patient reports his fiance left him 3 weeks ago, asking him to get help with his mental health. Patient also reports getting into an argument with his sons yesterday and reports regret. Patient reports he is open with [facility] but has not been in months and has been off his Rx. Upon evaluation today, patient was agreeable to interview in office. He states he has been dealing with suicidal ideations for many years that has been progressively worsening. He states that his mood symptoms has caused relationship issues with his family and fianc to the point that his fiance left him roughly 3 weeks ago due to his mental illness. This is confounded by the fact that he has previously been using methamphetamine daily up until about 1 week ago when he quit cold turkey. He ended up calling the ED yesterday and walked for 3 hours to come to the ED due to his suicidal thoughts. He reports 1 previous suicide attempt roughly 6 months ago via hanging that was stopped after his son found him hanging. He reports currently being on probation for a concealed weapon in which she was previously incarcerated for 90 days in 2022 for this. He reports previously going to rehab in February 2023 for roughly 2 weeks but found his stay difficult due to being away from his family. He reports not being interested in rehab right now as he is motivated to quit the substance. He states he has been using meth starting at age 16 after his ADHD medications was stopped. He reports auditory hallucinations that are mostly negative in nature. He reports hearing voices even when his mood is stable. He reports anxiety described as feeling restless, on edge, racing thoughts that are difficult to control. He denies any history of dianna. He reports a 19 pound weight loss in the past year, poor sleep, hopelessness, low energy, difficulty concentrating, however he denies any current suicidal or homicidal ideations intent or plan. At this time patient denies any auditory or visual hallucinations. Patient denies any flight of ideas racing thoughts and increased in goal directed behavior. PAST PSYCHIATRIC HISTORY: Patient has a history of ADHD, depression, and PTSD. He is closed with [facility] but most recent note and 02/2023 revealed the diagnoses of MDD with psychotic features, rule out bipolar disorder, PTSD, JOIE. He was on at that time Remeron 30 mg at bedtime, Depakote 750 mg twice daily, clonidine 0.1 mg daily. Patient denies being on any psychiatric medications. Patient reports 1 previous hospitalization at [facility] in 2008 for suicide attempt however patient reports 2 subsequent suicide attempts, 1 in 2022 via pills and another one 6 months prior via hanging patient denies any psychiatric outpatient follow- up. PMH: as per ER note ALLERGIES: as per EMR CHEMICAL DEPENDENCY HISTORY: as per HPI FAMILY PSYCHIATRIC/SUBSTANCE USE HISTORY: Patient reports mother has bipolar disorder and father suffered from paranoid schizophrenia. He denies any prior suicide attempts in the family. SOCIAL HISTORY: Patient was born and raised in [place]. He has 5 children and has a fianc. He has been staying with his mother for the past 2-3 weeks. 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 He has no employment. Highest level of education is eighth grade MENTAL STATUS EXAM: General Appearance: Patient appears to be thin, stated age is alert, directable, and attempts to cooperate. Patient appears to have adequate hygiene and grooming. Behavior: Patient is seated without any agitated behavior. Speech: Patient's speech is fluent and nonpressured. Mood/Affect: Patient reports their mood is "depressed ", affect is congruent and constricted. Suicidality/Homicidality: Patient denies having any homicidal ideation intent or plan. Denies any suicidal ideations intent or plan Perceptions: Patient denies any visual hallucinations and denies any current auditory hallucinations Though content/process: There is no evidence of any delusional thought content and thought process is linear and goal-directed. Memory and concentration: AOX3, grossly intact for the purposes of this session. Can spell "WORLD" backwards Judgment and insight: Poor STRENGTHS/WEAKNESSES: strength is that patient is resilient. Weakness is that patient has poor judgment and is impulsive INTELLECT: Average-below average IMPRESSIONS: Major depressive disorder, recurrent, severe with psychotic features -r/o schizoaffective disorder, depressed type vs. substance-induced mood disorder Generalized anxiety disorder Stimulant use disorder PLAN: -Patient is admitted under voluntary status to [facility] for stabilization of psychiatric symptoms and safety. Patient has signed adult voluntary form and medication consent and is placed in patient's chart. -Medications : Start patient on Remeron 7.5 mg at bedtime for depression/anxiety and Abilify 5 mg at bedtime for psychosis/mood stabilization -Ativan and Haldol PRN for agitation/aggression -Patient was counselled on substance abuse and desired to cut back on use-Will offer patient subtance use rehab however he declined today -Patient was informed of the risks, benefits and side effects of the medication and patient verbally consented to taking the medications. Patient signed med consent form and was placed in chart. -Internal Medicine consult to perform medical evaluation and physical. -NRT -not needed as patient does not smoke -SW on board for discharge planning. Encourage patient to participate in groups to work on coping skills. 01/15/24 11:02
[2024-01-15 11:30] LABS: Basophils # (A) 0.1 k/uL (0-0.2); Basophils % (A) 1 %; Eosinophils # (A) 0.3 k/uL (0-0.7); Eosinophils % (A) 4 %; HCT 50.1 % (39.0-53.0); Lymphocytes % (A) 26 %; MCH 30.4 pg (25.0-35.0); MCHC 34.1 g/dL (31.0-37.0); MCV 89.3 fL (80.0-100.0); Mean Platelet Volume 7.2; Monocytes # (A) 0.5 k/uL (0-1.0); Monocytes % (A) 6 %; Neutrophils # (A) 4.8 k/uL (1.3-7.7); Neutrophils % (A) 62 %; Platelet Count 344 k/uL (150-450); RDW 13.5 % (11.5-15.5); WBC 7.8 k/uL (3.8-10.6)
[2024-01-15 11:43] LABS: ALT 32 U/L (4-49); AST 30 U/L (17-59); African American GFR (CKD) 79 (>60 ml/min/1.73 sqM); Albumin 3.8 g/dL (3.5-5.0); Alkaline Phosphatase 88 U/L (38-126); Anion Gap 4 mmol/L; Blood Urea Nitrogen 11 mg/dL (9-20); Calcium 9.7 mg/dL (8.4-10.2); Carbon Dioxide 29 mmol/L (22-30); Chloride 107 mmol/L (98-107); Glucose 98 mg/dL (74-99); Magnesium 2.1 mg/dL (1.6-2.3); Non-African American GFR(CKD) 68 (>60 ml/min/1.73 sqM); Potassium 4.5 mmol/L (3.5-5.1); Sodium 140 mmol/L (137-145); Total Bilirubin 0.6 mg/dL (0.2-1.3); Total Protein 6.6 g/dL (6.3-8.2)
[2024-01-15] MEDS: ARIPiprazole 5 MG TAB PO SCH (20:06)
[2024-01-15] MEDS: MIRTAZAPINE 15 MG TAB PO SCH (20:06)
--- NOTE | 2024-01-16 05:25 | P.MDCNMH ---
History of Present Illness H&P Date: 01/15/24 This is a 43 male who presented to the emergency department with significant history of depression coming to the ER for mental health evaluation. Patient has been having increasing thoughts of suicide and has been progressively getting worse. Patient does not currently have a plan although has been thinking more over the last few weeks about wanting to kill himself. Patient follows with Dr. Oropeza in the outpatient setting with a past medical history of a traumatic injury suffering a pneumothorax and had a trach from an injury at work, anxiety, bipolar depression, smoking, denies any alcohol use and denies any other illicit drug use. No other labs other than a COVID/RSV/influenza testing, urine drug screen and urinalysis which was positive for methamphetamines and amphetamines otherwise everything else was unremarkable. Vital signs are stable and patient was admitted to [facility] voluntarily for psychiatric evaluation. REVIEW OF SYSTEMS: CONSTITUTIONAL: No fever, no malaise, no fatigue. HEENT: No recent visual problems or hearing problems. Denied any sore throat. CARDIOVASCULAR: No chest pain, orthopnea, PND, no palpitations, no syncope. PULMONARY: No shortness of breath, no cough, no hemoptysis. GASTROINTESTINAL: No diarrhea, no nausea, no vomiting, no abdominal pain. NEUROLOGICAL: No headaches, no weakness, no numbness. HEMATOLOGICAL: Denies any bleeding or petechiae. GENITOURINARY: Denies any burning micturition, frequency, or urgency. MUSCULOSKELETAL/RHEUMATOLOGICAL: Denies any joint pain, swelling, or any muscle pain. ENDOCRINE: Denies any polyuria or polydipsia. The rest of the 14-point review of systems is negative. PHYSICAL EXAMINATION: GENERAL: The patient is alert and oriented x3, not in any acute distress. Thin well developed, well nourished. HEENT: Pupils are round and equally reacting to light. EOMI. No scleral icterus. No conjunctival pallor. Normocephalic, atraumatic. No pharyngeal erythema. No thyromegaly. CARDIOVASCULAR: S1 and S2 present. No murmurs, rubs, or gallops. PULMONARY: Chest is clear to auscultation, no wheezing or crackles. ABDOMEN: Soft, nontender, nondistended, normoactive bowel sounds. No palpable organomegaly. MUSCULOSKELETAL: No joint swelling or deformity. EXTREMITIES: No cyanosis, clubbing, or pedal edema. NEUROLOGICAL: Gross neurological examination did not reveal any focal deficits. SKIN: No rashes. Multiple tattoos noted Assessment: Depression with suicidal ideation History of depression/anxiety/bipolar Continued ongoing nicotine dependence History of previous suicide attempts Past history of EtOH abuse, former, reports quitting 10 years ago GI prophylaxis Full code Plan: Patient was admitted to [facility] [address] psychiatric unit voluntarily for further psychiatric evaluation for increasing depression and suicidal thoughts All medications reviewed and resumed as appropriate Recommend basic labs and replace electrolytes per protocol Encouraged patient to be compliant with group therapy sessions and psychiatric evaluation Medication compliance Patient will need outpatient follow-up with primary care provider on discharge The impression and plan of care has been dictated by Rowan Bean Nurse Practitioner as directed. Dr. Bianka MD I have performed a history and examination and MDM of this patient, discussed the same with the dictator, and agree with the dictator's assessment and plan as written ,documented as a scribe. Based on total visit time, I have performed more than 50% of the visit. Past Medical History Additional Past Medical History / Comment(s): Pneumothorax from an accident at work and had to have a trach. History of Any Multi-Drug Resistant Organisms: None Reported Past Surgical History: Orthopedic Surgery Additional Past Surgical History / Comment(s): nasal surgery, trachea Past Anesthesia/Blood Transfusion Reactions: No Reported Reaction Smoking Status: Current every day smoker - Past Family History Mother Family Medical History: No Reported History Additional Family Medical History / Comment(s): Unable to obtain a family history from his sisiter. Medications and Allergies Allergies Allergy/AdvReac Type Severity Reaction Status Date / Time tramadol Allergy Nausea & Verified 01/15/24 01:17 Vomiting Physical Exam Vitals: Vital Signs Temp Pulse Pulse Resp BP BP Pulse Ox 01/15/24 04:47 98.1 F 88 18 131/81 99 01/15/24 04:11 87 18 123/81 97 01/15/24 01:17 98.0 F 82 16 134/94 100 Intake and Output 01/14/24 01/15/24 01/15/24 22:59 06:59 14:59 Other: Weight 63.701 kg Cranial Nerve Examination - Cranial Nerves Cranial Nerve I- Olfactory: Intact Cranial Nerve II- Optic: Intact Cranial Nerve III- Oculomotor: Intact Cranial Nerve IV- Trochlear: Intact Cranial Nerve V- Trigeminal: Intact Cranial Nerve - Abducens: Intact Cranial Nerve VII- Facial: Intact Cranial Nerve VIII- Auditory: Intact Cranial Nerve IX- Glossopharyngeal: Intact Cranial Nerve X- Vagus: Intact Cranial Nerve XI- Accessory: Intact Cranial Nerve XII- Hypoglossal: Intact Results CBC & Chem 7: 01/15/24 11:10 01/15/24 11:10 Labs: Abnormal Lab Results - Last 24 Hours (Table) 01/15/24 Range/Units 01:55 Ur Amphetamines Screen Detected H (NotDetected) U Methamphetamines Scrn Detected H (NotDetected)
[2024-01-16] MEDS: NICOTINE 14MG/24HR PATCH TRANSDERM SCH (09:45)
--- NOTE | 2024-01-16 11:20 | P.PN ---
Progress Note - Text Progress Note Date: 01/16/24 Interval History: Patient was seen wandering the hallways and was directable and agreeable to sp sally with technical report writer in the office. He states feeling "better "and that his mood is improved and that he slept better. He states he slept >8 hours last night and appetite is increased. He states speaking to his fiancee and that things are better with them. He states his fiancee is getting help as well. He is hopeful to be discharged by Monday due to his son's birthday. At this time patient denies any suicidal or homical ideations, intent or plan. Patient denies any auditory, visual hallucinations and denies any paranoia or delusions. Patient denies any side effects from the medications and has been compliant with meds. Mental Status Exam: General Appearance: Patient appears to be stated age is thin, alert, directable, and cooperative. Behavior: Patient is calmly seated without any agitated behavior. Speech: Patient's speech is fluent and nonpressured. Mood/Affect: Mood is improving mildly, affect is congruent and constricted. Suicidality/Homicidality: Patient denies having any suicidal or homicidal ideation intent or plan. Perceptions: Patient denies any visual hallucinations and denies any auditory hallucinations Though content/process: There is no evidence of any delusional thought content and thought process is linear and goal-directed. Memory and concentration: AOX3, grossly intact for the purposes of this session Judgment and insight: Improving mildly Assessment Psychosis, unspecified Rule out MDD with psychotic features versus substance-induced mood disorder versus schizoaffective disorder depressed type Tobacco use disorder Methamphetamine use disorder Generalized anxiety disorder Plan: -Patient continues to meet criteria for inpatient psychiatric admission for symptom stabilization and safety. Patient has signed adult voluntary form and medication consent and was placed in patient's chart. -Medications: Continue Remeron 7.5 mg at bedtime, Abilify 5 mg at bedtime -When necessary Ativan and Haldol for agitation/aggression. -NRT -nicotine patch -SW on board for discharge planning. Encouraged the patient to participate in milieu. Anticipate discharge later this week
[2024-01-16] MEDS: IBUPROFEN 600 MG TAB PO PRN (13:21)
[2024-01-16 16:41] LABS: Chol/HDL Ratio 5.62 Ratio; LDL Cholesterol,Calculated 143.8 mg/dL (0.0-131.0)
--- NOTE | 2024-01-17 12:21 | P.PN ---
Progress Note - Text Progress Note Date: 01/17/24 Interval History: Patient was seen in his room asleep but readily agreed to interview. He reports feeling fatigued today and that this is impacting his ability to go to groups. He continues to report improved mood, sleep and appetite. He states that his auditory hallucinations have decreased in intensity and is more manageable. At this time patient denies any suicidal or homical ideations, intent or plan. Patient denies any visual hallucinations and denies any paranoia or delusions. Patient denies any side effects from the medications and has been compliant with meds. Discussed with the patient his lab results including elevated lipid panel. Will have medical look into this. Mental Status Exam: General Appearance: Patient appears to be stated age is thin, alert, directable, and cooperative. Has several tattoos on his face and neck. Behavior: Patient is calmly lying in bed without any agitated behavior. Speech: Patient's speech is fluent and nonpressured. Mood/Affect: Mood is improving mildly, affect is congruent and reactive Suicidality/Homicidality: Patient denies having any suicidal or homicidal ideation intent or plan. Perceptions: Patient denies any visual hallucinations and denies any auditory hallucinations Though content/process: There is no evidence of any delusional thought content and thought process is linear and goal-directed. Memory and concentration: AOX3, grossly intact for the purposes of this session Judgment and insight: Improving mildly Assessment Psychosis, unspecified Rule out MDD with psychotic features versus substance-induced mood disorder versus schizoaffective disorder depressed type Tobacco use disorder Methamphetamine use disorder Generalized anxiety disorder Plan: -Patient continues to meet criteria for inpatient psychiatric admission for symptom stabilization and safety. Patient has signed adult voluntary form and medication consent and was placed in patient's chart. -Medications: Increase Remeron to 15 mg at bedtime, continue Abilify 5 mg at bedtime -When necessary Ativan and Haldol for agitation/aggression. -NRT -nicotine patch -SW on board for discharge planning. Encouraged the patient to participate in milieu. Anticipate discharge on Monday pending stabilization
[2024-01-17] MEDS: MIRTAZAPINE 15 MG TAB PO SCH (20:40)
--- NOTE | 2024-01-18 09:00 | P.PN ---
Progress Note - Text Progress Note Date: 01/18/24 Interval History: Patient was seen wandering the hallways and was directable and agreeable to spe ak with entry writer in the office. He states feeling well today specifically states feeling less fatigued than yesterday. He reports good sleep and appetite. He states missing a few groups due to previously being fatigued however he is hopeful to be able to attend some today. He states seeing his fiance yesterday. Discharge planning was discussed with patient and he was encouraged to continue taking his medications and follow-up with his outpatient provider upon discharge. At this time patient denies any suicidal or homical ideations, intent or plan. Patient denies any visual hallucinations and denies any paranoia or delusions. He reports mild auditory hallucinations that are lessening. Patient denies any side effects from the medications and has been compliant with meds. Mental Status Exam: General Appearance: Patient appears to be stated age is thin, alert, directable, and cooperative. Has several tattoos on his face and neck. Behavior: Patient is calmly seated without any agitated behavior. Speech: Patient's speech is fluent and nonpressured. Mood/Affect: Mood is improving, affect is congruent and reactive. Suicidality/Homicidality: Patient denies having any suicidal or homicidal ideation intent or plan. Perceptions: Patient denies any visual hallucinations and reports mild auditory hallucinations that are lessening Though content/process: There is no evidence of any delusional thought content and thought process is linear and goal-directed. Memory and concentration: AOX3, grossly intact for the purposes of this session Judgment and insight: Improving mildly Assessment Psychosis, unspecified Rule out MDD with psychotic features versus substance-induced mood disorder versus schizoaffective disorder depressed type Tobacco use disorder Methamphetamine use disorder Generalized anxiety disorder Plan: -Patient continues to meet criteria for inpatient psychiatric admission for symptom stabilization and safety. Patient has signed adult voluntary form and medication consent and was placed in patient's chart. -Medications: Continue Remeron 15 mg at bedtime for depression/anxiety and Abilify 5 mg at bedtime for psychosis -When necessary Ativan and Haldol for agitation/aggression. -NRT -nicotine patch -SW on board for discharge planning. Encouraged the patient to participate in milieu. Discharge plan for tomorrow, home with mom. Safety plan already done.
[2024-01-19 06:34] VITALS: BP 112/73; PULSE 73; RESP 18; TEMP 98.1
--- NOTE | 2024-01-19 13:37 | P.DS ---
Providers Date of admission: 01/15/24 03:47 Expected date of discharge: 01/19/24 Attending physician: Daylin Montes MD Consults: 01/15/24 04:09 Consult Physician Routine Consulting Provider: Amena Camacho Consult Reason/Comments: medical H&P Do you want consulting provider notified?: Yes, Notify in am Primary care physician: Blake Oropeza - Discharge Diagnosis(es) (1) Unspecified psychosis Current Visit: Yes Status: Acute Priority: High (2) Methamphetamine abuse Current Visit: Yes Status: Acute Priority: Medium (3) Nicotine dependence Current Visit: Yes Status: Acute Priority: Medium (4) Generalized anxiety disorder Current Visit: Yes Status: Acute Priority: Medium Hospital Course: Admission HPI: Admission note was completed by blurb writer "patient presented to the hospital on 01/15/2024 due to worsening depression with suicidal ideations. Per ER note, patient states "past couple of weeks I have been thinking suicidal thoughts-just been getting worse worse. Really significant thoughts tonight. I have been depressed for a long time-when I am alone it is worse. "Patient reports his fiance left him 3 weeks ago, asking him to get help with his mental health. Patient also reports getting into an argument with his sons yesterday and reports regret. Patient reports he is open with [facility] but has not been in months and has been off his Rx. Upon evaluation today, patient was agreeable to interview in office. He states he has been dealing with suicidal ideations for many years that has been progressively worsening. He states that his mood symptoms has caused relationship issues with his family and fianc to the point that his fiance left him roughly 3 weeks ago due to his mental illness. This is confounded by the fact that he has previously been using methamphetamine daily up until about 1 week ago when he quit cold turkey. He ended up calling the ED yesterday and walked for 3 hours to come to the ED due to his suicidal thoughts. He reports 1 previous suicide attempt roughly 6 months ago via hanging that was stopped after his son found him hanging. He reports currently being on probation for a concealed weapon in which she was previously incarcerated for 90 days in 2022 for this. He reports previously going to rehab in February 2023 for roughly 2 weeks but found his stay difficult due to being away from his family. He reports not being interested in rehab right now as he is motivated to quit the substance. He states he has been using meth starting at age 16 after his ADHD medications was stopped. He reports auditory hallucinations that are mostly negative in nature. He reports hearing voices even when his mood is stable. He reports anxiety described as feeling restless, on edge, racing thoughts that are difficult to control. He denies any history of dianna. He reports a 19 pound weight loss in the past year, poor sleep, hopelessness, low energy, difficulty concentrating, however he denies any current suicidal or homicidal ideations intent or plan. At this time patient denies any auditory or visual hallucinations. Patient denies any flight of ideas racing thoughts and increased in goal directed behavior." Hospital course: Upon admission to the unit patient was directable and agreeable to commence treatment and signed adult voluntary form. Patient got along well with other patients on the unit and followed unit protocol. Initially patient was isolative however he ended up going to several groups and was more social towards the end of his stay. Patient was compliant with the medications and denied any side effects throughout hospital course. Patient was started on Remeron and this was increased to 15 mg at bedtime for depression/anxiety and Abilify 5 mg at bedtime for psychosis. Patient spoke of his stressors and engaged in therapy both group and individual. Patient was also seen by medical team for history and physical exam. Patient's lipid panel notably came back elevated the patient was encouraged to follow up with his outpatient PCP for treatment. Throughout the course of the hospitalization patient gradually improved with regards to mood, anxiety, sleep and returned back to their baseline level of functioning became more future oriented with improved insight and judgment. On the day of discharge patient denied any suicidal or homicidal ideations intent or plan denied any auditory or visual hallucinations. The patient denied any access to guns or weapons. Patient denied any paranoia and did not endorse any delusions. Patient does have a significant history of substance abuse and was counseled on abstaining from all substances including methamphetamine alcohol and marijuana. Patient was offered however declined inpatient substance-abuse rehab.. Patient was also counseled on the medications and need for regular compliance and was encouraged to follow-up with their outpatient appointment for mental health and also for primary care. Prior to discharge a family meeting will be arranged by social services manager to answer any questions and ensure safety upon discharge incuding making sure that guns/weapons are either removed from the home or locked away. Mental status exam: General Appearance: Patient appears to be then, stated age is alert, pleasant, and cooperative. Patient is in no acute distress and has improved hygiene and grooming Behavior: Patient is calmly seated without any agitated behavior. Speech: Patient's speech is fluent and nonpressured. Mood/Affect: Patient reports their mood is "better", affect is congruent and euthymic. Suicidality/Homicidality: Patient denies having any suicidal or homicidal ideation intent or plan. Perceptions: Patient denies any auditory or visual hallucinations. Though content/process: There is no evidence of any delusional thought content and thought process is linear and goal-directed. More future oriented Memory and concentration: AOX3, grossly intact for the purposes of this session. Can spell "WORLD" backwards correctly. Judgment and insight: improved Impression: Unspecified psychosis Methamphetamine abuse Generalized anxiety disorder Nicotine dependence Plan: -Continue with discharge today as patient has improved and stabilized psychiatrically and is not currently an imminent threat to themself and/or others. -Continue medications: Continue Remeron 15 mg at bedtime for depression/anxiety and Abilify 5 mg at bedtime for psychosis -Patient was counseled on the need for medication compliance and appropriate follow-up at mental health and also primary care for medical issues. Patient verbalized understanding and agreed. -Social work to help coordinate patients discharge today arrange for and conduct family meeting to ensure safety upon discharge and answer any questions/concerns. also to ensure safe home environment that guns/weapons are either removed from the home or locked away. Social work also to arrange for patients follow up appointments with [facility] for psychiatric care along with follow up with primary care provider. -Patient counseled on abstaining from recreational drugs and marijuana and alcohol. Was informed/educated on the adverse effects on their physical and mental health. Patient verbally agreed and understood. Patient was offered substance abuse treatment however declined at this time. -Patient was instructed to return to the hospital or seek immediate medical care if their psychiatric or medical symptoms do worsen or reoccur. Allergies Allergy/AdvReac Type Severity Reaction Status Date / Time tramadol Allergy Nausea & Verified 01/15/24 01:17 Vomiting Vital Signs Temp 98.1 F 01/19/24 06:00 Pulse 73 01/19/24 06:00 Resp 18 01/19/24 06:00 BP 112/73 01/19/24 06:00 Pulse Ox 99 01/19/24 06:00 FiO2 Abnormal Labs 01/15/24 01/15/24 01/15/24 01:55 11:10 11:10 Creatinine 1.26 H Triglycerides 247.00 H Cholesterol 235.00 H LDL Cholesterol, Calc 143.8 H VLDL Cholesterol, Calc 49.40 H Ur Amphetamines Screen Detected H U Methamphetamines Scrn Detected H Patient Condition at Discharge: Stable Plan - Discharge Summary Discharge Rx Participant: Yes New Discharge Prescriptions: New Nicotine 14Mg/24Hr Patch [Habitrol] 1 patch TRANSDERM DAILY 30 Days #30 patch ARIPiprazole [Abilify] 5 mg PO HS 30 Days #30 tab Mirtazapine [Remeron] 15 mg PO HS 30 Days #30 tab Discharge Medication List ARIPiprazole [Abilify] 5 mg PO HS 30 Days #30 tab 01/19/24 [Rx] Mirtazapine [Remeron] 15 mg PO HS 30 Days #30 tab 01/19/24 [Rx] Nicotine 14Mg/24Hr Patch [Habitrol] 1 patch TRANSDERM DAILY 30 Days #30 patch 01/19/24 [Rx] Follow up Appointment(s)/Referral(s): [facility] [Outside] - 01/23/24 3:00 pm (01/22 at 3pm with Freda) Blake Oropeza MD [Primary Care Provider] - 1-2 days Patient Instructions/Handouts: How to Stop Smoking (DC), Depression (DC), Generalized Anxiety Disorder (GEN), Methamphetamine Abuse (DC), Psychotic Disorder (DC) Activity/Diet/Wound Care/Special Instructions: Avoid the use of street drugs and alcohol. Take all medications as prescribed. When you are in need of refills on your medications, please contact your medical provider and/or outpatient psychiatrist/provider to have this done. Please go to your scheduled outpatient appointment for aftercare treatment. If symptoms return or become worse, call the crisis line at and/or go to the nearest emergency room for evaluation. National Suicide Hotline 988 Discharge Disposition: HOME SELF-CARE
== END 2024-01-19 13:22 | disposition home or self-care (01) | DRG 751 ==
LOC: EC 01:15 → 3MHU 03:47
PROVIDERS: ADMIT Psychiatry & Neurology Psychiatry; ATTEND Psychiatry & Neurology Psychiatry
DX: F33.3 Major depressive disorder, recurrent, severe with psychotic symptoms (principal); F15.10 Other stimulant abuse, uncomplicated; F17.200 Nicotine dependence, unspecified, uncomplicated; F41.1 Generalized anxiety disorder; R63.4 Abnormal weight loss; F43.10 Post-traumatic stress disorder, unspecified; F90.9 Attention-deficit hyperactivity disorder, unspecified type; R45.851 Suicidal ideations; Z65.3 Problems related to other legal circumstances; Z79.899 Other long term (current) drug therapy; Z91.51 Personal history of suicidal behavior; Z63.0 Problems in relationship with spouse or partner; Z11.52 Encounter for screening for COVID-19; Z88.5 Allergy status to narcotic agent; Z68.22 Body mass index [BMI] 22.0-22.9, adult
CPT/HCPCS: 80053; 80061; 80306; 81003; 82075; 83036; 83735; 84443; 84481; 85025; 87636; 99285

== ENCOUNTER 2024-03-31 00:10 | Emergency (ER) | payer OTHER ==
[2024-03-31 00:21] VITALS: TEMP 97.8
--- NOTE | 2024-03-31 01:02 | ED ---
Fall HPI - General Chief Complaint: Fall Stated Complaint: Rib pain Time Seen by Provider: 03/31/24 01:01 Source: patient, RN notes reviewed Mode of arrival: ambulatory - History of Present Illness Initial Comments: 43-year-old male presenting to the ER for left rib pain x 1 day. States he had a slip and fall on the stairs, falling onto his back. Denies hitting head or losing consciousness. Since then, he has severe pain in his left lateral ribs, worse with breathing, coughing, or movement. States he has a history of left- sided rib fractures and this feels similar. Past medical history includes depression and bipolar disorder, no other health conditions. - Related Data Previous Rx's Medication Instructions Recorded ARIPiprazole [Abilify] 5 mg PO HS 30 Days #30 tab 01/19/24 Mirtazapine [Remeron] 15 mg PO HS 30 Days #30 tab 01/19/24 Nicotine 14Mg/24Hr Patch [Habitrol] 1 patch TRANSDERM DAILY 30 Days 01/19/24 #30 patch Cyclobenzaprine [Flexeril] 10 mg PO TID PRN #15 tab 03/31/24 Ketorolac [Toradol] 10 mg PO Q8HR #15 tab 03/31/24 Lidocaine 5% Patch [Lidoderm 5% 1 patch TOPICAL DAILY 7 Days #7 03/31/24 Patch] patch Allergies Allergy/AdvReac Type Severity Reaction Status Date / Time tramadol Allergy Nausea & Verified 03/31/24 00:21 Vomiting Review of Systems ROS Statement: Those systems with pertinent positive or pertinent negative responses have been documented in the HPI. ROS Other: All systems not noted in ROS Statement are negative. Past Medical History Additional Past Medical History / Comment(s): Pneumothorax from an accident at work and had to have a trach. History of Any Multi-Drug Resistant Organisms: None Reported Past Surgical History: Orthopedic Surgery Additional Past Surgical History / Comment(s): nasal surgery, trachea Past Anesthesia/Blood Transfusion Reactions: No Reported Reaction Past Psychological History: Anxiety, Depression Smoking Status: Current every day smoker Past Alcohol Use History: None Reported Past Drug Use History: None Reported - Past Family History Mother Family Medical History: No Reported History Additional Family Medical History / Comment(s): Unable to obtain a family history from his sisiter. General Exam Limitations: no limitations General appearance: alert, in no apparent distress Respiratory exam: Present: normal lung sounds bilaterally, chest wall tenderness (Left lateral rib pain to palpation). Absent: respiratory distress, wheezes, rales, rhonchi, stridor Cardiovascular Exam: Present: regular rate, normal rhythm, normal heart sounds. Absent: systolic murmur, diastolic murmur, rubs, gallop, clicks Neurological exam: Present: alert, oriented X3 Psychiatric exam: Present: normal affect, normal mood Skin exam: Present: warm, dry, intact, normal color. Absent: rash Course Vital Signs 03/31/24 03/31/24 00:18 03:10 Temperature 97.8 F Pulse Rate 98 100 Respiratory 16 18 Rate Blood Pressure 128/83 130/80 O2 Sat by Pulse 99 99 Oximetry Medical Decision Making - Medical Decision Making Was pt. sent in by a medical professional or institution (, PA, SEED TESTER, urgent care, hospital, or [facility]...) When possible be specific @ -No Did you speak to anyone other than the patient for history (EMS, parent, family, police, friend...)? What history was obtained from this source @ -No Did you review nursing and triage notes (agree or disagree)? Why? @ -I reviewed and agree with nursing and triage notes Were old charts reviewed (outside hosp., previous admission, EMS record, old EKG, old radiological studies, urgent care reports/EKG's, [facility] records)? Report findings @ -No old charts were reviewed Differential Diagnosis (chest pain, altered mental status, abdominal pain women, abdominal pain men, vaginal bleeding, weakness, fever, dyspnea, syncope, headache, dizziness, GI bleed, back pain, seizure, CVA, palpatations, mental health, musculoskeletal)? @ -Differential Musculoskeletal Muscular strain, contusion, ligament sprain, fracture, arthritis, septic arthritis, bursitis, cellulitis, muscle spasm, nerve compression, DVT, arterial occlusion, herpes zoster, electrolyte abnormality, tumor.... This is not meant to be in all inclusive list EKG interpreted by me (3pts min.). @ -None X-rays interpreted by me (1pt min.). @ -X-ray left ribs reveals no acute process CT interpreted by me (1pt min.). @ -None done U/S interpreted by me (1pt. min.). @ -None done What testing was considered but not performed or refused? (CT, X-rays, U/S, labs)? Why? @ -None What meds were considered but not given or refused? Why? @ -None Did you discuss the management of the patient with other professionals (professionals i.e. , PA, SEED TESTER, lab, RT, psych nurse, psychologist social, poolroom table attendant, teacher, field health officer, caser up)? Give summary @ -No Was smoking cessation discussed for >3mins.? @ -No Was critical care preformed (if so, how long)? @ -No Were there social determinants of health that impacted care today? How? (Homelessness, low income, unemployed, alcoholism, drug addiction, transportation, low edu. Level, literacy, decrease access to med. care, custodial, rehab)? @ -No Was there de-escalation of care discussed even if they declined (Discuss DNR or withdrawal of care, Hospice)? DNR status @ -No What co-morbidities impacted this encounter? (DM, HTN, Smoking, COPD, CAD, Cancer, CVA, ARF, Chemo, Hep., AIDS, mental health diagnosis, sleep apnea, morbid obesity)? @ -None Was patient admitted / discharged? Hospital course, mention meds given and route, prescriptions, significant lab abnormalities, going to OR and other pertinent info. @ -Discharge. This is a 43-year-old male presenting with left rib pain x 1 day status post mechanical fall. Vital signs within acceptable limits. Tenderness to palpation of left lateral ribs. Analgesics provided for supportive care. X- ray left ribs revealed no acute process. Given history and physical examination, patient is clinically diagnosed with left rib fracture. Given incentive spirometer. Appropriate return precautions and supportive care discussed. Case was discussed with my ED attending Dr. Gee. Undiagnosed new problem with uncertain prognosis? @ -No Drug Therapy requiring intensive monitoring for toxicity (Heparin, Nitro, Insulin, Cardizem)? @ -No Were any procedures done? @ -No Diagnosis/symptom? @ -Left rib fracture Acute, or Chronic, or Acute on Chronic? @ -Acute Uncomplicated (without systemic symptoms) or Complicated (systemic symptoms)? @ -Uncomplicated Side effects of treatment? @ -No Exacerbation, Progression, or Severe Exacerbation? @ -No Poses a threat to life or bodily function? How? (Chest pain, USA, SC, pneumonia, PE, COPD, DKA, ARF, appy, cholecystitis, CVA, Diverticulitis, Homicidal, Suicidal, threat to staff... and all critical care pts) @ -No Disposition Clinical Impression: Fracture of rib of left side Disposition: HOME SELF-CARE Condition: Stable Instructions (If sedation given, give patient instructions): Rib Fracture (ED) Additional Instructions: Use incentive spirometer 10 times hourly while awake. Use Toradol, Flexeril, and lidocaine patches as needed for pain. Please return to the Emergency Department if symptoms worsen or any other concerns. Prescriptions: Cyclobenzaprine [Flexeril] 10 mg PO TID PRN #15 tab PRN Reason: Muscle Spasm Lidocaine 5% Patch [Lidoderm 5% Patch] 1 patch TOPICAL DAILY 7 Days #7 patch Ketorolac [Toradol] 10 mg PO Q8HR #15 tab Is patient prescribed a controlled substance at d/c from ED?: No Referrals: Blake Oropeza MD [Primary Care Provider] - 1-2 days Time of Disposition: 03:09
--- NOTE | 2024-03-31 01:09 | XR ---
EXAMINATION TYPE: XR ribs LT w pa chest xray DATE OF EXAM: 03/31/2024 CLINICAL HISTORY: Left rib injury yesterday. With pain. TECHNIQUE: Single frontal view of the chest is obtained. A frontal and oblique images of the left-mohinder ed ribs. COMPARISON: Chest x-ray February 19, 2023 FINDINGS: There is no focal air space opacity, pleural effusion, or pneumothorax seen. The cardiac silhouette size is stable and within normal limits. The osseous structures are intact. Dedicated images of the left-sided ribs show no acute displaced fracture. Suboptimal technique noted. Overlying soft tissue is unremarkable. IMPRESSION: 1. No acute cardiopulmonary process. 2. No acute displaced left-sided rib fractures [facility], , 03/31/2024 1:06 AM
[2024-03-31] MEDS: KETOROLAC 15 MG/ML 1 ML VIAL IM STA (01:24)
[2024-03-31] MEDS: ORPHENADRINE 30 MG/ML 2 ML VIAL IM STA (01:24)
[2024-03-31 03:12] VITALS: BP 130/80; PULSE 100; RESP 18
== END 2024-03-31 03:26 | disposition home or self-care (01) ==
LOC: EC 00:10
DX: S22.32XA Fracture of one rib, left side, initial encounter for closed fracture (principal); F17.200 Nicotine dependence, unspecified, uncomplicated; Z88.5 Allergy status to narcotic agent; W10.9XXA Fall (on) (from) unspecified stairs and steps, initial encounter
CPT/HCPCS: 71101; 99283; 96372 ×2; J2360; J1885